=== PATIENT | female | born 1940 | race Caucasian/White ===

== ENCOUNTER → 2019-02-07 11:51 | Outpatient (CLI) | payer MEDICARE, MEDICAID, SELFPAY | PROVIDERS: PCP Family Medicine; Visit Provider Specialist | DX: R51 Headache (principal); R55 Syncope and collapse; G47.30 Sleep apnea, unspecified | CPT/HCPCS: 93005; 93225; 93226; 94762 ==

== ENCOUNTER → 2019-02-28 13:36 | Outpatient (CLI) | payer MEDICARE, BC, SELFPAY ==
--- NOTE | 2019-02-28 13:39 | CI_ITS ---
Cerebrovascular Exam Indications: Follow-up carotid 433.10. 780.2 Syncope and collapse. IMPRESSIONS 1. The bilateral vertebral arteries are patent with normal antegrade flow. 2. Stent visualized in right ICA. The stented segment is patent. 3. Study suggests less than 20% stenosis involving the right internal carotid artery. No change from the study of 28-Feb-2011. 4. Study suggests less than 20% stenosis involving the left internal carotid artery. No change from the study of 28-Feb-2011. History: Risk factors: Hypertension. Labs, prior tests, procedures, and surgery: Left endarterectomy. December 2009 Right carotid stent. March 2010 Labs, prior tests, procedures, and surgery: Left endarterectomy. December 2009 Right carotid stent. March 2010 Carotid duplex study. Complete study and Doppler flow study including spectral analysis, color and hernandez scale imaging. Height: Height: 170.2cm. Height: 67in. Weight: Weight: 79.4kg. Weight: 174.6lb. Body mass index: BMI: 27.4kg/m^2. Body surface area: BSA: 1.95m^2. Location: Vascular laboratory. Patient status: Outpatient. Tables: Arterial flow: + +--------+--------+ Location V sys V ed + +--------+--------+ Right CCA - proximal 49.5cm/s 12.6cm/s + +--------+--------+ Right CCA - distal 58.1cm/s 12.1cm/s + +--------+--------+ Right ECA 181cm/s 26cm/s + +--------+--------+ Right ICA - proximal 127cm/s 24.9cm/s + +--------+--------+ Right ICA - mid 118cm/s 20cm/s + +--------+--------+ Right ICA - distal 101cm/s 14.4cm/s + +--------+--------+ Right vertebral 37.7cm/s 11.9cm/s + +--------+--------+ Left CCA - proximal 93.5cm/s 17.8cm/s + +--------+--------+ Left CCA - distal 115cm/s 19.6cm/s + +--------+--------+ Left ECA 115cm/s 9.5cm/s + +--------+--------+ Left ICA - proximal 112cm/s 26.7cm/s + +--------+--------+ Left ICA - mid 114cm/s 26.7cm/s + +--------+--------+ Left ICA - distal 108cm/s 21.4cm/s + +--------+--------+ Left vertebral 74.2cm/s 15.6cm/s + +--------+--------+ Velocity ratios: + + + + + + Right, V sys Right, V ed Left, V sys Left, V ed + + + + + + Max ICA/dist CCA 2.19 2.06 0.99 1.36 + + + + + + (Report amended ) Electronically signed by: Sergey Cooper [id number]
--- NOTE | 2019-02-28 14:34 | MR_ITS ---
MR head/brain wo con HISTORY: Severe headache in back of head extending down into the neck, hypersomnolent ITS.REASON: headache, presyncope ORDERING PHYSICIAN: Keisha Shipman MD PATIENT AGE: 79 years Comparison: 11/03/2018 TECHNIQUE: Standard multiplanar multiecho sequences are performed without contrast. FINDINGS: No evidence of acute infarction. There is mild generalized atrophy with scattered periventricular and subcortical T2 white matter hyperintensities consistent with ischemic gliotic change from microvascular disease. Small cystic areas present in the body of the right caudate nucleus at 5 mm and could represent sequela from an old lacunar infarction. The cerebellum, and brainstem are unremarkable. No midline shift, mass effect, intracranial hemorrhage, or hydrocephalus. The pituitary, optic chiasm, corpus callosum, and craniocervical junction have an unremarkable appearance. Upper cervical images suggest canal stenosis at C3-C4 C4-C5 and C5-C6. This is however incompletely imaged. There is a small focus of increased FLAIR signal in the anterior aspect of the right CP angle. This area measures approximately 5 mm and is seen only on the axial images is not redemonstrated on the coronal images and may be due to an artifact. No sinus air-fluid level. Small amount fluid is present in the right mastoid sinus. IMPRESSION: 1. No acute finding. 2. Atrophy with chronic ischemic gliotic change. 3. Small 5 mm area of increased FLAIR signal in the right CP angle. This is of questionable clinical significance and may be due to an artifact. Follow-up study of the CP angles with thin sections without and with contrast may confirm if clinically desired. 4. Small amount of fluid in the right mastoid sinus
--- NOTE | 2019-02-28 14:34 | MR_ITS ---
MR cervical spine wo con, MR 3-d myelogram/MRCP HISTORY: PT states headaches in back of head that extend into neck. ITS.REASON: neck pain ORDERING PHYSICIAN: Keisha Shipman MD PATIENT AGE: 79 years Comparison: CT 11/03/18. TECHNIQUE: Standard multiplanar multiecho sequences are performed without contrast. 3-D MIP and myelographic images are also rendered and reviewed FINDINGS: There is motion degradation artifact. There is normal alignment. The craniocervical junction has an unremarkable appearance. C2-C3: Unremarkable. C3-C4: Mild concentric bulging disc with narrowing of the canal at 9 mm without cord flattening. Type I endplate changes are present at this level posteriorly. C4-C5: Degenerative disc disease with bulging disc and small central disc protrusion with narrowing of the canal at 9 mm with minimal contour deformity along the anterior aspect of the cord and mild bilateral foraminal narrowing. C5-C6: Degenerative disc disease with endplate hypertrophic changes and bulging disc which is eccentric toward the right with bilateral uncovertebral disc osteophyte complexes along with bilateral foraminal narrowing. Canal narrowing at 10 mm is noted. There is some mild impingement upon the anterior aspect of the cord on the right. C6-C7: Degenerative disc disease with mild bulging disc. There is a well-circumscribed oval area of isointense T1 and decreased T2 signal along the posterior aspect of the cord at this level. This measures 7 mm cephalad to caudad and 10 mm transverse and 7 mm AP representing an area of epidural calcification which was present on the previous CT scan. This is causing some canal narrowing with some mild impingement upon the posterior left aspect of the cord. C7-T1: Unremarkable IMPRESSION: 1. Multilevel degenerative disc disease with borderline canal stenosis. Please see above for detailed description at each level. 2. C3-C4: Mild concentric bulging disc with narrowing of the canal at 9 mm without cord flattening. Type I endplate changes are present at this level posteriorly 3. C4-C5: Degenerative disc disease with bulging disc and small central disc protrusion with narrowing of the canal at 9 mm with minimal contour deformity along the anterior aspect of the cord and mild bilateral foraminal narrowing. 4. C5-C6: Degenerative disc disease with endplate hypertrophic changes and bulging disc which is eccentric toward the right with bilateral uncovertebral disc osteophyte complexes along with bilateral foraminal narrowing. Canal narrowing at 10 mm is noted. There is some mild impingement upon the anterior aspect of the cord on the right. 5. C6-C7: Degenerative disc disease with mild bulging disc. There is a well-circumscribed oval area of isointense T1 and decreased T2 signal along the posterior aspect of the cord at this level. This measures 7 mm cephalad to caudad and 10 mm transverse and 7 mm AP representing an area of epidural calcification which was present on the previous CT scan. This is causing some canal narrowing with some mild impingement upon the posterior left aspect of the cord
== END ==
PROVIDERS: PCP Family Medicine; Visit Provider Specialist
DX: R51 Headache (principal); R55 Syncope and collapse; M47.812 Spondylosis without myelopathy or radiculopathy, cervical region; M54.2 Cervicalgia
CPT/HCPCS: 70551; 72141; 76376; 93880

== ENCOUNTER → 2019-03-17 20:18 | Outpatient (CLI) | payer MEDICARE, BC, SELFPAY | PROVIDERS: PCP Family Medicine; Visit Provider Specialist | DX: G47.33 Obstructive sleep apnea (adult) (pediatric) (principal) | CPT/HCPCS: 95810 ==

== ENCOUNTER → 2019-11-09 10:55 | Outpatient (CLI) | payer MEDICARE, BC, SELFPAY ==
--- NOTE | 2019-11-09 10:59 | CA_ITS ---
APPROVED REPORT Left Lower Extremity Venous Study for DVT. [employer] Labourer: EV DangeloT Indications Lower Extremity Pain: Pain back of left knee Vein Imaging CFV (L): compressive, spontaneous, phasic, augmentation FEM (L): compressive, spontaneous, phasic, augmentation POP (L): compressive, spontaneous, phasic, augmentation PTV (L): Compressible GSV (L): Compressible Peroneals (L):Compressible GAS (L): Compressible Findings Study suggests no evidence of DVT in the left lower extremity. Study suggests no evidence of SVT in the left lower extremity. Conclusion Study suggests no evidence of DVT in the left lower extremity. Study suggests no evidence of SVT in the left lower extremity. Critical Notification Physician Notified Date: 11/09/2019 Time: 11:25 am Physician Name: [facility] Electronically signed by : Jorge L Tomlinson, 11/09/2019 19:08:29
== END ==
PROVIDERS: PCP Emergency Medicine; Visit Provider Emergency Medicine
DX: M79.605 Pain in left leg (principal)
CPT/HCPCS: 93971

== ENCOUNTER 2020-04-25 19:52 | Observation (INO) | payer MEDICARE, BC, SELFPAY ==
--- NOTE | 2020-04-25 19:49 | ECG_ITS ---
APPROVED REPORT Exam: Resting ECG HR:77 bpm ECG Measurements Heart Rate 77 AXES DC P 78 QRSd 84 QRS 43 QT 350 T 5 QTc 396 <Conclusion> Sinus rhythm with AV dissociation and Accelerated Junctional rhythm Abnormal ECG Electronically signed by : Yogesh Curran, 04/28/2020 08:30:56
[2020-04-25 19:53] VITALS: BP 180/78; PULSE 88; RESP 20; TEMP 36.6; O2SAT 97; BMI 26.6
--- NOTE | 2020-04-25 19:54 | XR_ITS ---
PROCEDURE: XR CHEST PORTABLE CLINICAL HISTORY: cough COMPARISON: CR CXR1 CHEST-PORTABLE from 06/07/2014 FINDINGS: The cardiomediastinal silhouette and pulmonary vascularity are within normal limits. The lungs are clear without infiltrates, suspicious nodules, or pleural effusions. Degenerative changes the shoulders IMPRESSION: No acute findings. Dictated b Sergey Cooper MD 04/26/2020 07:50 Sergey Cooper MD in [facility] 04/26/2020 07:50
[2020-04-25 20:07] LABS: Basophils % 0.4 % (0.1-2.0); Eosinophils # 0.3 K/mm3 (0.0-0.4); Eosinophils % 3.1 % (0.1-12.0); Hematocrit 36.7 % (37.0-47.0); Hemoglobin 12.2 g/dL (12.2-16.2); Lymphocytes # 2.1 K/mm3 (0.7-4.5); Lymphocytes % 22.2 % (10-50); Mean Corpuscular HGB Conc 33.2 g/dL (31.8-35.4); Mean Corpuscular Hemoglobin 30.4 pg (27.0-31.2); Mean Corpuscular Volume 91.6 fl (81-99); Mean Platelet Volume 7.1 fl (7.4-10.4); Monocytes # 0.3 K/mm3 (0.1-1.0); Monocytes % 2.7 % (1.7-9.3); Neutrophils # 6.9 K/mm3 (1.8-7.8); Neutrophils % 71.6 % (37.0-80.0); Platelet Count 320 K/mm3 (142-424); Red Blood Count 4.01 M/mm3 (4.20-5.40); Red Cell Distribution Width 13.6 % (11.5-17.5); White Blood Count 9.6 K/mm3 (4.8-10.8)
[2020-04-25 20:17] LABS: Chloride 103 mmol/L (98-107); Potassium 4.1 mmoL/L (3.5-5.1); Sodium 140 mmol/L (136-145)
[2020-04-25 20:19] LABS: Alanine Aminotransferase 18 U/L (12-78); Aspartate Amino Transferase 36 U/L (14-36); Blood Urea Nitrogen 17 mg/dl (7-17); Creatinine Clearance Estimated 50 mL/min (50-200); Estimated Glomerular Filt Rate 48 ml/min (>60); GFR (African American) 58 ML/MIN (>60)
[2020-04-25 20:20] LABS: Activated Partial Thrombo Time 23.2 seconds (23.6-34.0); Albumin Level 3.9 g/dl (3.5-5.0); Albumin/Globulin Ratio 1.3 (1.1-1.8); Alkaline Phosphatase 70 U/L (38-126); Anion Gap 11.1 mEq/L (5-15); Bilirubin,Total 0.6 mg/dl (0.2-1.3); Carbon Dioxide 30 mmol/L (22.0-30.0); Globulin 3.1 g/dL (1.3-3.2); Glucose 137 mg/dl (74-100); INR 1.01 (0.9-1.1); Lipase 105 U/L (23-300); Prothrombin Time 10.4 seconds (9.4-11.8)
[2020-04-25 20:52] VITALS: BP 132/91; PULSE 69; RESP 18; O2SAT 94
[2020-04-25 21:31] VITALS: BP 166/64; PULSE 72; RESP 18; O2SAT 96
[2020-04-25 21:43] LABS: NT Pro Brain Natriuretic Pep. 350 pg/mL (0-450)
[2020-04-25 21:44] LABS: Troponin I < 0.01 ng/ml (0.00-0.034)
--- NOTE | 2020-04-25 21:54 | HMH.EDGENADL ---
ED Disposition Clinical Impression: Chest pain Disposition: Admitted as Observation Condition on Discharge: Good - Critical Care Critical Care Time: No Attestation: On 04/25/20, the high probability of a clinically significant, sudden or life threatening deterioration of the following system(s) required my full and direct attention, intervention and personal management. The time I documented below is in addition to time spent performing reported procedures but includes the following listed in this critical care notation. Medical Decision Making - Medical Records Medical records reviewed: Yes: I reviewed the patient's medical records. - Antwan Inquiry Pt receiving controlled substance: No Vital Signs: 04/25/20 19:53 04/25/20 20:52 04/25/20 21:31 Temperature 97.9 F Temperature Source Oral Pulse Rate [Right] 88 69 72 Respiratory Rate 20 18 18 Blood Pressure [Right Arm] 180/78 H 132/91 H 166/64 H Blood Pressure Mean [Right Arm] 112 104 98 Blood Pressure Source [Right Arm] Automatic Cuff Blood Pressure Position [Right Arm] Supine 02 Sat by Pulse Oximetry 97 94 L 96 Oxygen Delivery Method Room Air Room Air Room Air 04/25/20 22:20 Temperature Temperature Source Pulse Rate [Right] 72 Respiratory Rate 18 Blood Pressure [Right Arm] 156/99 H Blood Pressure Mean [Right Arm] 118 Blood Pressure Source [Right Arm] Blood Pressure Position [Right Arm] 02 Sat by Pulse Oximetry 94 L Oxygen Delivery Method Room Air - Lab Data Lab results reviewed: Yes: I reviewed the patient's lab results. Lab Results 04/25/20 19:55: WBC 9.6, RBC 4.01 L, Hgb 12.2, Hct 36.7 L, MCV 91.6, MCH 30.4, MCHC 33.2, RDW 13.6, Plt Count 320, MPV 7.1 L, Neut % (Auto) 71.6, Lymph % (Auto) 22.2, [place] % (Auto) 2.7, Eos % (Auto) 3.1, Baso % (Auto) 0.4, Neut # (Auto) 6.9, Lymph # (Auto) 2.1, [place] # (Auto) 0.3, Eos # (Auto) 0.3, Baso # (Auto) 0.0 04/25/20 19:55: PT 10.4, INR 1.01, APTT 23.2 L 04/25/20 19:55: Sodium 140, Potassium 4.1, Chloride 103, Carbon Dioxide 30, Anion Gap 11.1, BUN 17, Creatinine 1.10 H, Estimated Creat Clear 50, Estimated GFR 48 L, Est GFR ( Amer) 58 L, Glucose 137 H, Calcium 10.0, Total Bilirubin 0.6, AST 36, ALT 18, Alkaline Phosphatase 70, Troponin I < 0.01, NT-Pro-B Natriuret Pep 350, Total Protein 7.0, Albumin 3.9, Globulin 3.1, Albumin/Globulin Ratio 1.3, Lipase 105 Result diagrams: 04/25/20 19:55 04/25/20 19:55 Orders (Tests/Meds): ED MEDICATIONS Discontinued Medications Generic Name Dose Route Start Last Admin Trade Name Freq PRN Reason Stop Dose Admin Aspirin 324 mg 04/25/20 20:24 04/25/20 20:25 Aspirin 81mg Chewable Tablet PO 04/25/20 20:25 324 mg ONCE ONE Administration Nitroglycerin 0.4 mg 04/25/20 20:24 04/25/20 20:25 Nitrostat 0.4mg Sl Tablet SL 04/25/20 20:25 1 tab ONCE ONE Administration ORDERS Category Date Time Status XR chest portable Stat Exams 04/25/20 19:54 Taken Full Resp Panel (COVID)(INPT) Routine Lab 04/25/20 22:37 Received Troponin I Q3H Lab 04/25/20 22:47 Received Troponin I Q3H Lab 04/26/20 02:00 Ordered EKG Request [ECG Request by /Jeanmarie] Stat Y 04/25/20 19:54 Ordered - Radiology Data #1 Image(s): Chest Preliminary Findings: Normal/NAD - ECG Data Tracing #1 I reviewed this ECG and interpreted as documented below: Normal Sinus Rhythm: Yes General Adult HPI - General Chief complaint: Chest Pain Stated complaint: Chest Pain Time Seen by Provider: 04/25/20 21:00 Mode of Arrival: Wheelchair Source of Information: Patient Limitations: No Limitations Description of Symptoms (Recalled from ER Triage Doc. 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 She states that the pain started about 45 minutes
[2020-04-25 22:20] VITALS: BP 156/99; PULSE 72; RESP 18; O2SAT 94
--- NOTE | 2020-04-25 22:30 | PC.NURSE ---
Pt admitted, waiting for COVID 19 results before pt can be transferred to the floor
[2020-04-25 22:41] LABS: Adenovirus,PCR Not Detected (NotDetected); Bordetella Pertussis Not Detected (NotDetected); Chlamydophila Pneumoniae, PCR Not Detected (NotDetected); Coronavirus 19, PCR Not Detected (NotDetected); Coronavirus 229E Not Detected (NotDetected); Coronavirus NL63 Not Detected (NotDetected); Coronavirus OC43 Not Detected (NotDetected); Coronovirus HKU1,PCR Not Detected (NotDetected); Human Metapneumovirus Not Detected (NotDetected); Influenza A, PCR Not Detected (NotDetected); Influenza AH1, 2009 Not Detected (NotDetected); Influenza AH1, PCR Not Detected (NotDetected); Influenza AH3,PCR Not Detected (NotDetected); Influenza B, PCR Not Detected (NotDetected); Mycoplasma Pneumoniae, PCR Not Detected (NotDetected); Parainfluenza 1, PCR Not Detected (NotDetected); Parainfluenza 2, PCR Not Detected (NotDetected); Parainfluenza 3, PCR Not Detected (NotDetected); Parainfluenza 4, PCR Not Detected (NotDetected); Respiratory Syncytial Virus Not Detected (NotDetected); Rhinovirus/Enterovirus Not Detected (NotDetected)
[2020-04-25 22:43] VITALS: O2SAT 95; BMI 28.0
--- NOTE | 2020-04-25 22:43 | PC.NURSE ---
awaiting covid results for admission
[2020-04-25 23:16] LABS: Troponin I < 0.01 ng/ml (0.00-0.034)
[2020-04-25 23:54] VITALS: BP 171/59; PULSE 74; RESP 18; O2SAT 94
[2020-04-26] VITALS (18 sets, daily range): BP systolic 104–155; BP diastolic 43–75; PULSE 55–70; RESP 16–18; TEMP 36.6–37.1; O2SAT 93–99
--- NOTE | 2020-04-26 | IR_ITS ---
APPROVED REPORT Patient Location: Inpatient PROCEDURES Left heart catheterization Left ventriculogram Selective coronary angiogram INDICATION Known coronary disease, Unstable angina, Informed consent was obtained prior to the procedure. COMPLICATIONS NONE Estimated Blood Loss: LESS THAN 10 ML TECHNIQUE One percent lidocaine used to anesthetize the right anterior aspect of the wrist. The right radial artery was accessed via the Seldinger technique. A 6 Chinese sheath was placed in the right radial artery. 2.5 mg of verapamil, 800 mcg of nitroglycerin, 1mg Lidocaine and 5000 U Heparin were given through the arterial sheath. The Parrish catheter was also used to perform left heart catheterization, left ventriculogram and selective coronary angiogram. At the end of the procedure the sheath was removed good hemostasis was achieved using Traclet band, patient was transferred to the postop holding area in stable condition. ANGIOGRAPHIC RESULTS The left main artery Normal The left anterior descending artery Has mild proximal atheromatous plaque creating 20 to 30% stenoses. The vessel is calcified tortuous throughout its course. There is a stent in the mid segment which is widely patent free of in-stent restenosis. Likewise in the first diagonal artery there is a stent in the proximal segment which is also widely patent free of in-stent restenosis. The circumflex artery Nondominant calcified with mild 10 to 20% atheromatous plaque The right coronary artery Is a large dominant vessel with diffuse proximal 20% stenoses mid vessel 30 to 40% stenosis along tortuous bands. The entire vessel was tortuous The BELL ventriculogram reveals Hyperdynamic at 75% The left ventricular end-diastolic pressure 20 mmHg IMPRESSION Tortuous calcified coronary artery disease as described above Patent stent in the mid LAD and first diagonal artery Hyperdynamic ventricle consistent with diastolic dysfunction/hypertensive heart disease Elevated LVEDP also consistent with diastolic dysfunction PLAN 1. Medical management Electronically signed by : Liborio Burns, 04/26/2020 14:38:31
--- NOTE | 2020-04-26 02:04 | ECG_ITS ---
APPROVED REPORT Exam: Resting ECG HR:69 bpm ECG Measurements Heart Rate 69 AXES W[place] 178 P 58 QRSd 88 QRS 38 QT 372 T 44 QTc 398 <Conclusion> Normal sinus rhythm Early repolarization Normal ECG Electronically signed by : Yogesh Curran, 04/28/2020 08:30:46
--- NOTE | 2020-04-26 02:05 | PC.NURSE ---
pt called out and stated she was having chest pain again. repeat EKG obtained and an inch of nitro paste applied. pt reports a decrease in chest pain after nitro was applied from a 5 to a 4
--- NOTE | 2020-04-26 02:07 | PC.NURSE ---
report called to GENO Duarte
[2020-04-26 02:52] LABS: Troponin I < 0.01 ng/ml (0.00-0.034)
--- NOTE | 2020-04-26 04:24 | PC.NURSE ---
0400 NSR with occasional PAC
--- NOTE | 2020-04-26 05:17 | PC.NURSE ---
0500 Normal Sinus Rhythm
--- NOTE | 2020-04-26 05:58 | PC.NURSE ---
0600 Sinus rhythm HR 70 0500 HR 64 04 HR 74
--- NOTE | 2020-04-26 06:46 | PC.NURSE ---
0645 Sinus Rhythm HR 68. Denies chest pain/shortness of air.
[2020-04-26 07:06] LABS: Basophils % 0.3 % (0.1-2.0); Eosinophils # 0.1 K/mm3 (0.0-0.4)
[2020-04-26 07:17] LABS: Alanine Aminotransferase 15 U/L (12-78); Albumin Level 3.5 g/dl (3.5-5.0); Albumin/Globulin Ratio 1.2 (1.1-1.8); Alkaline Phosphatase 80 U/L (38-126); Aspartate Amino Transferase 38 U/L (14-36); Bilirubin,Total 0.5 mg/dl (0.2-1.3); Blood Urea Nitrogen 16 mg/dl (7-17); Calcium 9.6 mg/dl (8.4-10.2); Carbon Dioxide 31 mmol/L (22.0-30.0); Chloride 99 mmol/L (98-107); Creatinine Clearance Estimated 58 mL/min (50-200); Estimated Glomerular Filt Rate 60 ml/min (>60); GFR (African American) 73 ML/MIN (>60); Globulin 2.9 g/dL (1.3-3.2); Glucose 149 mg/dl (74-100); Sodium 136 mmol/L (136-145); Total Protein,Serum 6.4 g/dl (6.3-8.2)
[2020-04-26 07:18] LABS: Hematocrit 32.7 % (37.0-47.0); Lymphocytes # 1.3 K/mm3 (0.7-4.5); Lymphocytes % 13.8 % (10-50); Mean Corpuscular HGB Conc 33.9 g/dL (31.8-35.4); Mean Corpuscular Hemoglobin 30.8 pg (27.0-31.2); Mean Platelet Volume 7.1 fl (7.4-10.4); Monocytes # 0.3 K/mm3 (0.1-1.0); Monocytes % 3.6 % (1.7-9.3); Neutrophils # 7.6 K/mm3 (1.8-7.8); Neutrophils % 81.4 % (37.0-80.0); Platelet Count 255 K/mm3 (142-424); Red Cell Distribution Width 13.4 % (11.5-17.5); White Blood Count 9.3 K/mm3 (4.8-10.8)
[2020-04-26 07:19] LABS: Hemoglobin 11.1 g/dL (12.2-16.2)
--- NOTE | 2020-04-26 07:27 | HMH.PHAVTE ---
[facility] Pharmacy VTE Monitoring - Patient Demographics Admission date: 04/26/20 Report Date: 04/26/20 Time: 07:27 Allergies/Adverse Reactions: Patient Allergies No Known Allergies Allergy (Verified 11/16/19 12:51) Height: 1.7 m Weight: 81.193 kg Patient Problems: Current Active Problems Chest pain (Acute) - VTE Risk Labs: VTE Related Lab Results Hgb 11.1 g/dL (12.2-16.2) L 04/26/20 06:51 Hct 32.7 % (37.0-47.0) L 04/26/20 06:51 Plt Count 255 K/mm3 (142-424) 04/26/20 06:51 PT 10.4 seconds (9.4-11.8) 04/25/20 19:55 INR 1.01 (0.9-1.1) 04/25/20 19:55 APTT 23.2 seconds (23.6-34.0) L 04/25/20 19:55 BUN 16 mg/dl (7-17) 04/26/20 06:51 Creatinine 0.90 mg/dl (0.52-1.04) 04/26/20 06:51 Estimated Creat Clear 58 mL/min (50-200) 04/26/20 06:51 Was VTE Risk Assessment Performed: Yes VTE Score: 3 VTE Risk Level: Low Risk Clinical Trial Participant: No - Prophylaxis VTE Prophylaxis Ordered?: Yes Types of VTE Prophylaxis: TEDS Knee High
--- NOTE | 2020-04-26 07:30 | HMH.PHAINT ---
HOME MEDICATION RECONCILIATION COMPLETED USING LIST FROM PHARMACY
--- NOTE | 2020-04-26 07:38 | HMH.CNCARD ---
History of Present Illness Consult date: 04/26/20 Requesting physician: Alok Murphy Consult reason: chest pain Chief complaint: chest pain Additional Medical History:: 1. Coronary artery disease A. History of coronary artery stenting x3, approximately 2013, Dr. Acuna, [place], [place] 2. Hypertension 3. Hyperlipidemia 4. Diabetes mellitus, treated for at least 10 years 5. Remote history of tobacco use discontinued in 1993, present previously smoked 3 to 4 packs/day Perez in her early teens. 6. Concern for dementia with history of MRI of the head showing cortical atrophy 7. Recent COVID exposure, 04/2020 History of present illness: 80-year-old white female admitted through the emergency department for complaint of chest pain with radiation to the neck. Patient lives alone and states that symptoms began yesterday as a heaviness but also described as a sharpness per the ER MD. Patient did try and acid and soda to see if the symptoms were related to indigestion with no relief. She did take a nitroglycerin at home but feels that it was and did not get any relief with it. She did drive herself to the ER with pain noted as a 12 out of 10 by the time she got to the ER. She was given nitroglycerin sublingual with subsequent improvement/resolution of symptoms. Patient was admitted and had nitroglycerin paste placed overnight. She continues to have some intermittent chest discomfort described as heaviness with radiation to the neck as a 5 out of 10 at times. Troponins have returned normal x3 overnight. EKG shows sinus rhythm without acute EKG changes on initial EKG. Second EKG obtained during the night shows what appears to be early repolarization abnormalities. [facility] History Medical History: Reports:: Coronary Artery Disease, Diabetes Mellitus Type 2, Hyperlipidemia, Hypertension Denies:: Cancer, Diabetes Mellitus Type 1, Internal Pacemaker, MRSA *Have you ever received a pneumonia vaccine?: Yes *Have you received a flu vaccine this season?: Yes Other Medical History: Reports: Arthritis, Cataracts, Other Laterality Cases: Left: Carotid Endarterectomy, Bilateral: Cataract, Tonsillectomy, Total Hip Replacement Other Surgeries: Yes: Appendectomy, Cardiac Catheterization, Coronary Stent, Hysterectomy-Total. No: Pacemaker Amputation: No Fractures: No - *Social History Smoking Status: Former smoker Tobacco Type: cigarettes #Yrs smoked (if former smoker): 30 Alcohol Intake: former Alcohol Intake Frequency:: other Substance Use Type: denies use *Occupational Status:: retired Housing: house Household Members: none *Travel in the last 8 weeks: None Family Hx:: Cancer, Diabetes Meds Home Medications Medication Instructions Recorded Confirmed Type Amlodipine Besylate 5 mg PO DAILY 09/04/18 04/26/20 History Atorvastatin Calcium [Atorvastatin 80 mg PO HS 09/04/18 04/26/20 History 80mg Tab] Bisoprolol Fumarate [Bisoprolol 2.5 mg PO DAILY 09/04/18 04/26/20 History 5mg Tablet] Gabapentin [Gabapentin 300mg Cap] 600 mg PO BID 09/04/18 04/26/20 History Aspirin [Aspirin 81mg chewable 81 mg PO DAILY 11/03/18 04/26/20 History tab] Amitriptyline HCl [Elavil 10mg 10 mg PO HS 04/26/20 04/26/20 History tablet] Allergies Allergy/AdvReac Type Severity Reaction Status Date / Time No Known Allergies Allergy Verified 11/16/19 12:51 Review of Systems - Review of Systems Review of systems:: pertinent systems reviewed and negative unless documented below - *Cardiovascular Reports chest pain, Reports chest pain at rest - *Respiratory Denies cough, Denies shortness of breath - *Gastrointestinal Denies loose stools, Denies nausea, Denies vomiting - *Genitourinary Denies blood in urine - *Musculoskeletal Denies joint pain, Denies back pain - *Neurologic Denies fainting, Denies tingling Exam Vital signs and Labs for Last 24 Hours: Temp Pulse Resp BP Pulse Ox 98.8 F 68 16 15
--- NOTE | 2020-04-26 07:49 | ECG_ITS ---
APPROVED REPORT Exam: Resting ECG HR:73 bpm ECG Measurements Heart Rate 73 AXES [place] 176 P 38 QRSd 90 QRS 12 QT 374 T 33 QTc 412 <Conclusion> Normal sinus rhythm Nonspecific ST abnormality Abnormal ECG Electronically signed by : Yogesh Curran, 04/28/2020 08:30:08
--- NOTE | 2020-04-26 08:29 | HMH.HP ---
*Admission Date: 04/26/20 <Anisa Yanez 04/26/20 08:33> *Chief complaint: chest pain <Anisa Yanez 04/26/20 08:33> *History of present illness: Ms. Levine is a 80-year-old white female admitted through the emergency department for complaint of chest pain with radiation to the neck. Patient lives alone and states that symptoms began yesterday as a heaviness but also described as a sharpness per the ER MD. Patient did try antacid and soda to see if the symptoms were related to indigestion with no relief. She did take a nitroglycerin at home but feels that it was and did not get any relief with it. She did drive herself to the ER with pain noted as a 12 out of 10 by the time she got to the ER. She was given nitroglycerin sublingual with subsequent improvement/resolution of symptoms. Patient was admitted and had nitroglycerin paste placed overnight. She continues to have some intermittent chest discomfort described as heaviness with radiation to the neck as a 5 out of 10 at times. Troponins have returned normal x3 overnight. EKG shows sinus rhythm without acute EKG changes on initial EKG. Second EKG obtained during the night shows what appears to be early repolarization abnormalities. (the above as per Jimmy Marquez) <Anisa Yanez 04/26/20 08:33> [facility] History I have reviewed the patient's past medical history: Yes <Anisa Yanez 04/26/20 08:33> Medical History: Reports:: Coronary Artery Disease, Diabetes Mellitus Type 2, Hyperlipidemia, Hypertension Denies:: Cancer, Diabetes Mellitus Type 1, Internal Pacemaker, MRSA <Anisa Yanez 04/26/20 08:33> *Have you ever received a pneumonia vaccine?: Yes <Anisa Yanez 04/26/20 08:33> *Have you received a flu vaccine this season?: Yes <Anisa Yanez 04/26/20 08:33> Other Medical History: Reports: Arthritis, Cataracts, Other <Anisa Yanez 04/26/20 08:33> Laterality Cases: Left: Carotid Endarterectomy, Bilateral: Cataract, Tonsillectomy, Total Hip Replacement <Anisa Yanez 04/26/20 08:33> Other Surgeries: Yes: Appendectomy, Cardiac Catheterization, Coronary Stent, Hysterectomy-Total. No: Pacemaker <Anisa Yanez 04/26/20 08:33> Amputation: No <RenataAnisa 04/26/20 08:33> Fractures: No <RenataAnisa 04/26/20 08:33> - *Social History Smoking Status: Former smoker <Anisa Yanez 04/26/20 08:33> Tobacco Type: cigarettes <Anisa Yanez 04/26/20 08:33> #Yrs smoked (if former smoker): 30 <Anisa Yanez 04/26/20 08:33> Alcohol Intake: former <Anisa Yanez 04/26/20 08:33> Alcohol Intake Frequency:: other <RenataAnisa 04/26/20 08:33> Substance Use Type: denies use <Anisa Yanez 04/26/20 08:33> *Occupational Status:: retired <Anisa Yanez 04/26/20 08:33> Housing: house <Derik Yaneza 04/26/20 08:33> Household Members: none <Anisa Yanez 04/26/20 08:33> *Travel in the last 8 weeks: None <Anisa Yanez 04/26/20 08:33> Family Hx:: Cancer, Diabetes <Derik Yaneza 04/26/20 08:33> Review of Systems - Constitutional Denies chills, Denies fever(s) <Anisa Yanez 04/26/20 08:33> - Eyes Denies blurry vision, Denies double vision <RenataAnisa 04/26/20 08:33> - ENT Denies nasal congestion, Denies sore throat <Derik Yaneza 04/26/20 08:33> - *Cardiovascular Reports chest pain, Reports shortness of breath (some pain with inspiration) <Anisa Yanez 04/26/20 08:33> - *Respiratory Denies cough, Denies wheezing <Anisa Yanez 04/26/20 08:33> - *Gastrointestinal Denies abdominal pain, Denies loose stools, Denies nausea, Denies vomiting <Anisa Yanez - 04/26/20 08:33> - *Genitourinary Denies difficulty urinating, Denies painful urination <Anisa Yanez 04/26/20 08:33> - *Musculoskeletal Denies joint pain <Anisa Yanez 04/26/20 08:33> - *Neurologic Denies headache(s), Denies fainting, Denies tingling, Denies dizziness, Denies weakness <Anisa Yanez 04/26/20 08:33> Meds Elizabeth
--- NOTE | 2020-04-26 10:03 | CA_ITS ---
APPROVED REPORT Waiter/Waitress Third Class: MIGUEL Laterality: Bilateral Study Quality: Good Indications: left carotid bruit H/O STENT RIGHT ICA AND LEFT ENDARTERECTOMY Doppler Spectral Velocity Analysis dICA (R) 160.30/35.90 cm/s dICA (L) 127.10/33.30 cm/s Jaz (R) 182.40/27.40 cm/s Jaz (L) 134.20/26.20 cm/s pICA (R) 196.10/47.90 cm/s pICA (L) 208.60/37.20 cm/s dCCA (R) 95.10/20.00 cm/s dCCA (L) 204.50/26.90 cm/s pCCA (R) 74.70/20.10 cm/s pCCA (L) 169.10/19.80 cm/s Vert (R) 99.50/16.60 cm/s Vert (L) 79.40/13.70 cm/s ICA/CCA 2.10 ICA/CCA 1.00 Findings Duplex evaluation demonstrates stenosis of the right proximal internal carotid artery in the range of 50-69% with PSV =140 cm/sec, EDV <100 cm/sec, and IC/CC Ratio <4.0.Duplex evaluation demonstrates stenosis of the left proximal internal carotid artery in the range of 20-49% with PSV <140 cm/sec, EDV <100 cm/sec, and IC/CC Ratio <4.0.Antegrade flow seen bilateral vertebral arteries. Changes noted from previous exam of 02/28/19 Conclusion Duplex evaluation demonstrates stenosis of the right proximal internal carotid artery in the range of 50-69% with PSV =140 cm/sec, EDV <100 cm/sec, and IC/CC Ratio <4.0. Duplex evaluation demonstrates stenosis of the left proximal internal carotid artery in the range of 20-49% with PSV <140 cm/sec, EDV <100 cm/sec, and IC/CC Ratio <4.0. Antegrade flow seen bilateral vertebral arteries. Electronically signed by : Sergey Cooper MD 04/26/2020 17:16:07
--- NOTE | 2020-04-26 17:27 | HMH.ACPN2 ---
Internal Medicine - PN: Subj *Date: 04/26/20 *Time: 17:27 Interval history: Patient had left heart cath today and is anxious to go home. Tolerating regular diet. Exam Vital signs and Labs for Last 24 Hours: Temp Pulse Resp BP Pulse Ox 98.1 F 61 16 136/57 L 94 L 04/26/20 11:27 04/26/20 14:45 04/26/20 14:45 04/26/20 14:45 04/26/20 14:45 Laboratory Results - last 24 hr 04/25/20 19:55: WBC 9.6, RBC 4.01 L, Hgb 12.2, Hct 36.7 L, MCV 91.6, MCH 30.4, MCHC 33.2, RDW 13.6, Plt Count 320, MPV 7.1 L, Neut % (Auto) 71.6, Lymph % (Auto) 22.2, [place] % (Auto) 2.7, Eos % (Auto) 3.1, Baso % (Auto) 0.4, Neut # (Auto) 6.9, Lymph # (Auto) 2.1, [place] # (Auto) 0.3, Eos # (Auto) 0.3, Baso # (Auto) 0.0 04/25/20 19:55: PT 10.4, INR 1.01, APTT 23.2 L 04/25/20 19:55: Sodium 140, Potassium 4.1, Chloride 103, Carbon Dioxide 30, Anion Gap 11.1, BUN 17, Creatinine 1.10 H, Estimated Creat Clear 50, Estimated GFR 48 L, Est GFR ( Amer) 58 L, Glucose 137 H, Calcium 10.0, Total Bilirubin 0.6, AST 36, ALT 18, Alkaline Phosphatase 70, Troponin I < 0.01, NT-Pro-B Natriuret Pep 350, Total Protein 7.0, Albumin 3.9, Globulin 3.1, Albumin/Globulin Ratio 1.3, Lipase 105 04/25/20 22:37: Chlamy pneumoniae PCR Not detected, Adenovirus (PCR) Not detected, B. pertussis DNA (PCR) Not detected, Coronavirus OC43 (PCR) Not detected, Coronavirus HKU1 (PCR) Not detected, Coronavirus 229E (PCR) Not detected, COVID-19 PCR Not detected, Coronavirus NL63 (PCR) Not detected, Human Metapneumovir PCR Not detected, Influenza A (H1) PCR Not detected, Influ A (H1N1/09) PCR Not detected, Influenza A (H3) PCR Not detected, Influenza Type A (PCR) Not detected, Influenza Type B (PCR) Not detected, M. pneumoniae (PCR) Not detected, Parainfluenza 1 (PCR) Not detected, Parainfluenza 2 (PCR) Not detected, Parainfluenza 3 (PCR) Not detected, Parainfluenza 4 (PCR) Not detected, RSV (PCR) Not detected, Entero/Rhino (PCR) Not detected 04/25/20 22:47: Troponin I < 0.01 04/26/20 02:05: Troponin I < 0.01 04/26/20 06:51: WBC 9.3, RBC 3.60 L, Hgb 11.1 L, Hct 32.7 L, MCV 91.0, MCH 30.8, MCHC 33.9, RDW 13.4, Plt Count 255, MPV 7.1 L, Neut % (Auto) 81.4 H, Lymph % (Auto) 13.8, [place] % (Auto) 3.6, Eos % (Auto) 1.0, Baso % (Auto) 0.3, Neut # (Auto) 7.6, Lymph # (Auto) 1.3, [place] # (Auto) 0.3, Eos # (Auto) 0.1, Baso # (Auto) 0.0 04/26/20 06:51: Sodium 136, Potassium 4.0, Chloride 99, Carbon Dioxide 31 H, Anion Gap 10.0, BUN 16, Creatinine 0.90, Estimated Creat Clear 58, Estimated GFR 60, Est GFR ( Amer) 73 D, Glucose 149 H, Calcium 9.6, Total Bilirubin 0.5, AST 38 H, ALT 15, Alkaline Phosphatase 80, Total Protein 6.4, Albumin 3.5 D, Globulin 2.9, Albumin/Globulin Ratio 1.2 I & O for Last 24 hours: Intake & Output 04/23/20 04/24/20 04/25/20 04/26/20 23:59 23:59 23:59 23:59 Intake Total 360 / 360 Balance 360 / 360 Weight 179 lb Radiology Reports for the Last 24 Hours: Carotid Doppler shows 50% - 69% stenosis Narrative: Impression from left heart cath done today by Dr. Burns: Tortuous calcified coronary artery disease as described above Patent stent in the mid LAD and first diagonal artery Hyperdynamic ventricle consistent with diastolic dysfunction/hypertensive heart disease Elevated LVEDP also consistent with diastolic dysfunction PLAN 1. Medical management Assessment and Plan (1) Chest pain Current visit: Yes Status: Acute Category: Medical Code(s): R07.9 - Chest pain, unspecified (2) Coronary artery disease Current visit: Yes Status: Acute Category: Medical Code(s): I25.10 - Atherosclerotic heart disease of [place] coronary artery without angina pectoris (3) History of coronary artery stent placement Current visit: Yes Status: Acute Category: Surgical Code(s): Z95.5 - Presence of coronary angioplasty implant and graft (4) Hypertension Current visit: Yes Status: Acute Category: Medical Code(s): I10 - Essential (primary) hypertension
--- NOTE | 2020-04-26 20:04 | PC.NURSE ---
PATIENT A&O X4, LUNGS CLEAR. THIS RN REMOVED RADIAL BAND, CLEANED AREA, APPLIED NON ADHERENT GAUZE AND COVERED WITH TEGADERM. THIS RN STARTED THE D/C PROCESS AND INQUIRED ABOUT PATIENT'S RIDE AND PATIENT INFORMED THIS RN THAT SHE WAS GOING TO DRIVE HERSELF HOME. THIS RN INFORMED HER THAT SHE IS NOT TO DRIVE FOR 24HRS AFTER CATHETERIZATION. PATIENT STATED THAT SHE WILL CALL AROUND TO FIND A RIDE. NO OTHER NEEDS OR CONCERNS AT THIS TIME.
--- NOTE | 2020-04-28 08:54 | HMH.DCSUM ---
General - General Admission date:: 04/26/20 Discharge date: 04/26/20 HPI HPI: Ms. Levine is a 80-year-old white female admitted through the emergency department for complaint of chest pain with radiation to the neck. Patient lives alone and states that symptoms began yesterday as a heaviness but also described as a sharpness per the ER MD. Patient did try antacid and soda to see if the symptoms were related to indigestion with no relief. She did take a nitroglycerin at home but feels that it was and did not get any relief with it. She did drive herself to the ER with pain noted as a 12 out of 10 by the time she got to the ER. She was given nitroglycerin sublingual with subsequent improvement/resolution of symptoms. Patient was admitted and had nitroglycerin paste placed overnight. She continues to have some intermittent chest discomfort described as heaviness with radiation to the neck as a 5 out of 10 at times. Troponins have returned normal x3 overnight. EKG shows sinus rhythm without acute EKG changes on initial EKG. Second EKG obtained during the night shows what appears to be early repolarization abnormalities. (the above as per [facility]) Hospital Course Hospital Course: The patient was admitted and cardiology planned a heart cath for the next day. Her chest x-ray showed nothing acute. She had a carotid duplex showing stenosis of the right internal carotid at 50 to 69% and stenosis of the left internal carotid at 20 to 49%. The patient was kept overnight and her heart cath was performed the next day. Her cath showed tortuous calcified coronary artery disease but with a patent stent in the mid LAD and first diagonal artery. There was a hyperdynamic ventricle consistent with diastolic dysfunction and hypertensive heart disease as well as an elevated LVEDP consistent with diastolic dysfunction. Cardiology recommended medical management. They felt the patient could be discharged home on aspirin 81 mg, atorvastatin 80 mg, bisoprolol 2.5 mg, Aldactone 25 mg, and amlodipine 5 mg. She will follow-up with cardiology. Objective Vital signs: Temp Pulse Resp BP Pulse Ox 97.8 F 64 17 129/55 L 93 L 04/26/20 17:45 04/26/20 19:59 04/26/20 19:59 04/26/20 19:59 04/26/20 19:59 Narrative: - Constitutional no acute distress - *Routine HEENT Exam Head: Present: normocephalic Eye: Present: EOMI, PERRL ENT: Present: mucous membranes dry - *Routine Neck Exam Present: supple. Absent: lymphadenopathy - *Routine Respiratory Exam Present: CTA bilaterally - *Routine Cardiovascular Exam Present: RRR - *Routine Abdominal Exam Present: soft, normoactive bowel sounds. Absent: tenderness - *Routine Extremities Exam Absent: cyanosis, clubbing, edema - *Routine Skin Exam Present: warm. Absent: rash - *Routine Neurological Exam Present: alert, oriented X3 DS: Diagnosis - Discharge Diagnosis (1) Chest pain Status: Acute (2) Coronary artery disease Status: Acute (3) History of coronary artery stent placement Status: Acute (4) Hypertension Status: Acute (5) Hyperlipidemia associated with type 2 diabetes mellitus Status: Acute (6) Diabetes mellitus type 2 in nonobese Status: Acute (7) Carotid artery disease Status: Acute (8) Diastolic dysfunction without heart failure Status: Acute Discharge Plan - Patient Discharge Instructions ACTIVITY: Continue current activity, Limited activity DIET: low fat, low cholesterol Patient Instructions: DI for Cardiac Catheterization - Follow up Plan Follow up with: Liborio Burns MD [Staff Physician] - 1 week Disposition: Home, Self-Intermediate Medications: Home Medications Medication Instructions Recorded Confirmed Type Amlodipine Besylate 5 mg PO DAILY 09/04/18 04/26/20 History Atorvastatin Calcium [Lipitor 80mg 80 mg PO HS 09/04/18 04/26/20 History Tab]
== END 2020-04-26 20:00 | disposition home or self-care (01) ==
LOC: ER 21:57 → 2ND 04-26 02:45
PROVIDERS: Emergency Medicine; Internal Medicine; Admitting Provider Family Medicine; Emergency Provider Family Medicine; Visit Provider Family Medicine
DX: I25.110 Atherosclerotic heart disease of native coronary artery with unstable angina pectoris (principal); Z95.5 Presence of coronary angioplasty implant and graft; I11.0 Hypertensive heart disease with heart failure; I50.30 Unspecified diastolic (congestive) heart failure; Z87.891 Personal history of nicotine dependence; E11.9 Type 2 diabetes mellitus without complications; E78.5 Hyperlipidemia, unspecified; Z79.82 Long term (current) use of aspirin; Z79.899 Other long term (current) drug therapy; R06.9 Unspecified abnormalities of breathing; G45.1 Carotid artery syndrome (hemispheric)
CPT/HCPCS: 36415; 71045; 80053; 83690; 83880; 84484; 85025; 85610; 85730; 87581; 87633; 87798; 93005; 93458; 93880; 99152; 99284; C1725; C1760; C1769; G0378; J1644; Q9967

== ENCOUNTER → 2020-06-08 08:16 | Outpatient (CLI) | payer MEDICARE, BC, SELFPAY ==
--- NOTE | 2020-06-08 08:17 | CA_ITS ---
APPROVED REPORT EXAM: Comprehensive 2D, Doppler, and color-flow Echocardiogram Telemedicine Physician: Aletha Junior RVT Ht: 5 ft 7 in Wt: 174lbs BSA: 1.91 BP: 152/40 mmHg Indications: DD,CAD,HTN,EX SMOKER,DM,HLD,CP 2D Dimensions LVOT 1.84 cm (M/F) 1.5-2.5 M-Mode Dimensions RVDd 2.10 cm (0.9-2.6) LVDd 5.77 cm (3.5-5.7) LVDs 4.09 cm (3.5-5.7) IVSd 0.57 cm (0.6-1.1) PWd 0.53 cm (0.6-1.1) EF (Teich) 55.20% FS 29.10% EDV (Teich) 164.60 mL ESV (Teich) 73.80 mL LV Diastology E/A Ratio 0.91 Mitral Valve MV A Velocity 66.00 (40-130 cm/s) Left Ventricle Left atrium is mildly enlarged, left ventricle is normal size, mild concentric left ventricular hypertrophy, visually estimated ejection fraction 55% with no regional wall motion abnormality, grade 1 diastolic dysfunction seen without tissue Doppler evidence of raise left atrial pressure. Right Ventricle Right atrium and right ventricle are normal size and contractility. Aortic Valve Aortic valve is minimally thickened and fibrosed, there is no aortic stenosis or aortic insufficiency. Mitral Valve Mitral valve is grossly normal, there is mild mitral regurgitation. Tricuspid Valve Tricuspid valve grossly normal, there is mild tricuspid regurgitation, calculated right ventricular systolic pressure is within normal range. Pulmonic Valve Pulmonic valve is poorly visualized. Great Vessels Aortic root is normal size. Pericardium No significant pericardial effusion noted. Conclusion 1. Normal left ventricular size, mild concentric left ventricular hypertrophy, visually estimated ejection fraction 55% with no regional wall motion abnormality, grade 1 diastolic dysfunction seen without tissue Doppler evidence of raise left atrial pressure. 2. Mild mitral and tricuspid regurgitation, calculated right ventricular systolic pressure within normal range. 3. No significant pericardial effusion noted. Electronically signed by : Pierre Donald, 06/08/2020 14:23:00
== END ==
PROVIDERS: PCP Family Medicine; Referring Provider Urology; Visit Provider Urology
DX: E78.5 Hyperlipidemia, unspecified (principal); I10 Essential (primary) hypertension; I25.10 Atherosclerotic heart disease of native coronary artery without angina pectoris; I51.89 Other ill-defined heart diseases; I77.9 Disorder of arteries and arterioles, unspecified
CPT/HCPCS: 93306

== ENCOUNTER → 2020-08-22 12:01 | Outpatient (CLI) | payer MEDICARE, BC, SELFPAY ==
--- NOTE | 2020-08-22 12:06 | XR_ITS ---
PROCEDURE: XR LUMBAR SPINE MIN 4V CLINICAL INDICATION: fall, lumbo-sacral pain COMPARISON: CR XR LUMBAR SPINE MIN 4V from 11/08/2019 FINDINGS: No fracture or dislocation. No lytic or blastic change. There is normal mineralization. There is multilevel lumbar spondylosis with degenerative disc disease T11-S1 most severe at L4-5. There is 4 mm anterolisthesis of L3 on L4. There are endplate osteophytes. There is mild SI sclerosis on the right. No lytic or blastic change. Incidental vascular calcification is noted. Other findings:None. IMPRESSION: Multilevel lumbar spondylosis as detailed above. No acute fracture or dislocation. No significant change Dictated by: Sergey Cooper MD 08/22/2020 18:20 Sergey Cooper MD in [place] 08/22/2020 18:20
== END ==
PROVIDERS: PCP Family Medicine; Visit Provider Specialist
DX: S39.92XA Unspecified injury of lower back, initial encounter (principal); M54.5 Low back pain
CPT/HCPCS: 72110

== ENCOUNTER → 2021-06-14 13:15 | Outpatient (CLI) | payer MEDICARE, BC, SELFPAY ==
--- NOTE | 2021-06-14 13:19 | XR_ITS ---
PROCEDURE: XR WRIST LT MIN 3V CLINICAL INDICATION: BL CTS COMPARISON: No exams were available for comparison FINDINGS: No fracture or dislocation. No lytic or blastic change. There is normal mineralization. Mild osteoarthritic changes are present at the 1st carpal metacarpal joint. Other findings:None. 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
--- NOTE | 2021-06-14 13:19 | XR_ITS ---
PROCEDURE: XR WRIST RT MIN 3V CLINICAL INDICATION: BL CTS COMPARISON: No exams were available for comparison FINDINGS: No fracture or dislocation. No lytic or blastic change. There is normal mineralization. Moderate osteoarthritic changes are present at the 1st metacarpal-carpal joint. Other findings:None. IMPRESSION: Osteoarthritic change 1st metacarpal-carpal joint otherwise negative Dictated by: Sergey Cooper MD 06/14/2021 14:50 Sergey Cooper MD in [place] 06/14/2021 14:50
== END ==
PROVIDERS: PCP Family Medicine; Visit Provider Orthopaedic Surgery
DX: G56.03 Carpal tunnel syndrome, bilateral upper limbs (principal)
CPT/HCPCS: 73110

== ENCOUNTER → 2021-07-15 11:48 | Outpatient (CLI) | payer MEDICARE, BC, SELFPAY ==
--- NOTE | 2021-07-15 11:55 | XR_ITS ---
PROCEDURE: XR CERVICAL SPINE W FLEX/EXT CLINICAL INDICATION: Neck pain COMPARISON: No exams were available for comparison FINDINGS: There is normal curvature and alignment. C1 through C7 appear intact. There is disc space narrowing at the C5-6 level with minimal anterior osteophytic spurring. Oblique films show mild neural foraminal narrowing bilaterally at the C5-6 level, the remaining neural foramina appear normal. There is an apparent right internal carotid stent. There are surgical clips in the soft tissues anterior and left lateral to the C5-6 disc space level. The prevertebral soft tissues are normal and the odontoid is normal. Flexion and extension views show essentially normal range of motion. IMPRESSION: Mild degenerate disc disease C5-6 and mild bilateral neural foraminal narrowing at this level Dictated by: Dr. Demario Marc MD 07/17/2021 15:18 Dr. Demario Marc MD in [place] 07/17/2021 15:18
== END ==
PROVIDERS: PCP Family Medicine; Visit Provider Specialist
DX: G44.86 Cervicogenic headache (principal); M54.2 Cervicalgia
CPT/HCPCS: 72052

== ENCOUNTER 2021-08-02 15:00 | Outpatient (RCR) | payer MEDICARE, BC, SELFPAY ==
--- NOTE | 2021-07-17 10:56 | HMH.PTOPEV ---
PT Outpatient Evaluation Rehab PT Outpatient Evaluation Start: 07/17/21 10:33 Freq: Status: Active Protocol: Document 07/17/21 10:33 LAURA (Rec: 07/17/21 10:56 LAURA [id number]) Electronically Signed By Ethan Villarreal, PT 07/17/21 10:33 Outpatient Therapy Subjective History Subjective History Patient is an 81 years old female presenting to outpatient PT with reports of cervicogenic headaches, B shoulder pain, B CTS and L posterior thigh pain. MD order did not include B shoulder pain, though patient verbalized that this is her main concern. PT to focus on cervicogenic headaches/neck pain and LLE pain. Suggest referral to OT to address shoulder/CTS symptoms. Patient reports no LLE radicular symptoms. Comorbidities include hx of B JIMBO, stents x 4 (1 carotid), hx of diabetes, HTN and HL. Chief Complaint Pain,Stiff,Paresthesia, Weakness Symptom Type Ache,Other Symptoms Relieved By Rest/Positioning Prior Functional Limitations Reaching,Lifting,Housework, Standing,Walking Current Functional Limitations Reaching,Lifting,Housework, Standing,Walking Symptom Description Intermittent Level of pain today (0-10) 0 Pain scale - at its best (0-10) 0 Pain scale - at its worst (0-10) 9 Cervical Eval Palpation Cervical Muscles R Suboccipital,L Suboccipital, R Upper Trapezius,L Upper Trapezius Cervical/Thoracic Palpation Findings Tenderness Posture Head/C-Spine Posture Sitting Position C-Spine Flattened Head/C-Spine Posture Standing Position C-Spine Flattened Flexibility Deficits Upper Trapezius Muscle Length (R) Moderate Tightness,(L) Moderate Tightness Levaetor Scapulae Muscle Length (R) Moderate Tightness,(L) Moderate Tightness Pectoralis Minor Muscle Length (R) Moderate Tightness,(L) Moderate Tightness Passive Joint Mobility Cervical PIVM Dec: R OA L OA R AA L AA R C2/3
== END 2021-08-02 15:05 | disposition home or self-care (01) ==
LOC: PT 15:00
PROVIDERS: PCP Family Medicine; Visit Provider Specialist
DX: G44.86 Cervicogenic headache (principal); G89.29 Other chronic pain; G56.03 Carpal tunnel syndrome, bilateral upper limbs; M79.652 Pain in left thigh
CPT/HCPCS: 97110; 97163

== ENCOUNTER 2021-08-23 12:58 | Outpatient (RCR) | payer MEDICARE, BC, SELFPAY ==
--- NOTE | 2021-08-23 14:05 | HMH.OTOPEV ---
OT Inpatient Evaluation Rehab OT Outpatient Eval Start: 08/23/21 13:34 Freq: Status: Active Protocol: Document 08/23/21 13:34 TATIBHARATHI (Rec: 08/23/21 14:05 BAL [id number]) Electronically Signed By Katy Tanner, OT 08/23/21 13:34 Outpatient Therapy Subjective History Subjective History 81 year old female referred to skilled OP OT services for B carpal tunnel syndrome. Patient verbalize having pain in B wrist for the past 12 years. NCV-EMG completed on B wrist comfirming CT. Patient had schedule for CTR for B wrist, however cancelled appointment 2* having hip pain . Patient verbalize during OT OP evaluation that she has been having no pain in B hands for the past month, only tingling and numbness. Chief Complaint Stiff,Weakness,Decreased Field Auditor Strength Symptom Type Numbness,Tingling Symptoms Relieved By Prescription Meds Symptoms Aggravated By Physical Activity Prior Functional Limitations Lifting Current Functional Limitations Lifting Symptom Description Intermittent Level of pain today (0-10) 0 Pain scale - at its best (0-10) 0 Pain scale - at its worst (0-10) 8 Wrist/Hand Eval Wrist Range of Motion Right Wrist Extension Active Range of Motion ( 50 degrees) Wrist Flexion Active Range of Motion ( 70 degrees) Wrist Radial Deviation Active Range of 20 Motion (degrees) Wrist Ulnar Deviation Active Range of 20 Motion (degrees) Forearm Supination Active Range of 70 Motion (degrees) Forearm Pronation Active Range of Motion 90 (degrees) Left Wrist Extension Active Range of Motion ( 60 degrees) Wrist Flexion Active Range of Motion ( 40 degrees) Wrist Radial Deviation Active Range of 20 Motion (degrees) Wrist Ulnar Deviation Active Range of 30 Motion (degrees) Forearm Supination Active Range of 75 Motion (degrees) Forearm Pronation Active Range of Motion 90 (degrees) Field Auditor/Pinch Strength Right Field Auditor Strength Measurement (lbs) 35 Left Field Auditor Strength Measurement (lbs) 35 Special Tests Wrist Phalen Test Positive Left,Positive Right OT Outpatient Assessment Impairments Problems/Impairments Impai
== END 2021-08-23 12:59 | disposition home or self-care (01) ==
LOC: OT 12:58
PROVIDERS: PCP Family Medicine; Visit Provider Specialist
DX: G56.03 Carpal tunnel syndrome, bilateral upper limbs (principal)
CPT/HCPCS: 97165

== ENCOUNTER 2022-04-26 16:50 | Emergency (ER) | payer MEDICARE, BC, SELFPAY ==
[2022-04-26 17:00] VITALS: BP 115/72; PULSE 76; RESP 19; TEMP 36.8; O2SAT 98; BMI 25.9
--- NOTE | 2022-04-26 17:32 | HMH.EDUTC ---
[facility] Disposition Clinical Impression: Black head Disposition: Home, Self-Care Condition on Discharge: Good Instructions: DI for Acne Additional Instructions: keep area clean and dry monitor for s/s of infection Referrals: Gee Mares MD [Primary Care Provider] - Time of Disposition: 17:36 Medical Decision Making - Antwan Inquiry Pt receiving controlled substance: No [facility] HPI - General Chief complaint: Urgent Treatment Center Stated complaint: Spot on back Time Seen by Provider: 04/26/22 17:32 Mode of Arrival: Ambulatory Source of Information: Patient Limitations: No Limitations - History of Present Illness Provider Complaint: 82 yr old female presents for black spot on upper back. pt states it does not hurt her daughter pointed it out yesterday. - Related Data Home Medications Medication Instructions Recorded Confirmed Gabapentin [Gabapentin 300mg Cap] 600 mg PO BID 09/04/18 03/14/22 Aspirin [Aspirin 81mg chewable 81 mg PO DAILY 11/03/18 03/14/22 tab] multivitamin 1 tab PO DAILY 04/24/21 03/14/22 pyridoxine (vitamin B6) 100 mg 100 mg PO DAILY tab 04/24/21 03/14/22 tablet Previous Rx's Medication Instructions Recorded amlodipine 10 mg tablet 5 mg PO DAILY #90 tab 06/04/20 atorvastatin 80 mg tablet 80 mg PO HS #90 tab 06/04/20 bisoprolol fumarate 5 mg tablet 2.5 mg PO DAILY #90 tab 06/04/20 spironolactone 25 mg tablet 25 mg PO DAILY #90 tab 06/04/20 amitriptyline 10 mg tablet 10 mg PO HS #30 tab 02/13/22 Allergies Allergy/AdvReac Type Severity Reaction Status Date / Time No Known Allergies Allergy Verified 03/14/22 10:12 [facility] History - Hepatitis A Screen Attestation statement:: This patient has been screened for Hepatitis A risk factors. I have reviewed the patient's past medical history: Yes Medical History: Reports:: Coronary Artery Disease, Diabetes Mellitus Type 2, Hyperlipidemia, Hypertension Denies:: Cancer, Diabetes Mellitus Type 1, Internal Pacemaker, MRSA Other Medical History: Reports: Arthritis, Cataracts, Other Comment: LILLY Laterality Cases: Left: Carotid Endarterectomy, Bilateral: Tonsillectomy, Total Hip Replacement Other Surgeries: Yes: Appendectomy, Cardiac Catheterization, Coronary Stent, Hysterectomy-Total, Hysterectomy-Partial. No: Pacemaker Amputation: No Fractures: No - Social History Smoking Status: Former smoker Tobacco Type: cigarettes #Yrs smoked (if former smoker): 30 Alcohol Intake: former Alcohol Intake Frequency:: other Substance Use Type: denies use Occupational Status: retired Housing: house Household Members: none Family Hx:: Cancer, Diabetes, Hyperlipidemia, Hypertension ROS Obtained: Yes Systems reviewed as appropriate & no additional complaints - Constitutional Constitutional: Reports system reviewed and no additional complaints, except as docu, Denies fever(s) - Eyes Eyes: Reports system reviewed and no additional complaints, except as docu, Denies dry eyes - ENT Ears, Nose, Mouth, and Throat: Reports system reviewed and no additional complaints, except as docu, Denies dizziness - Cardiovascular Cardiovascular: Reports system reviewed and no additional complaints, except as docu, Denies chest pain - Respiratory Respiratory: Reports system reviewed and no additional complaints, except as docu, Denies shortness of breath - Gastrointestinal Gastrointestingal: Reports: system reviewed and no additional complaints, except as docu. Denies: abdominal pain - Musculoskeletal Musculoskeletal: Reports system reviewed and no additional complaints, except as docu, Denies joint pain - Integumentary/Breasts Skin/Breast: Reports system reviewed and no additional complaints, except as docu, Reports as per HPI, Reports other - Neurologic Neurologic: Reports system reviewed and no additional complaints, except as docu, Denies dizziness - Endocrine Endocrine: Reports system reviewed and no additional complaints, except as d
[2022-04-26 17:36] VITALS: BP 115/72; PULSE 76; RESP 19; TEMP 36.8; O2SAT 98
== END 2022-04-26 17:40 | disposition home or self-care (01) ==
PROVIDERS: Emergency Provider Nurse Practitioner Family; PCP Emergency Medicine
DX: L70.0 Acne vulgaris (principal); I25.10 Atherosclerotic heart disease of native coronary artery without angina pectoris; E11.9 Type 2 diabetes mellitus without complications; E78.5 Hyperlipidemia, unspecified; I10 Essential (primary) hypertension; M19.90 Unspecified osteoarthritis, unspecified site; Z95.5 Presence of coronary angioplasty implant and graft; Z87.891 Personal history of nicotine dependence; Z96.649 Presence of unspecified artificial hip joint; Z82.49 Family history of ischemic heart disease and other diseases of the circulatory system; Z83.3 Family history of diabetes mellitus; Z80.9 Family history of malignant neoplasm, unspecified
CPT/HCPCS: 99212; G0463

== ENCOUNTER 2022-12-14 22:17 | Emergency (ER) | payer MEDICARE, BC, SELFPAY ==
[2022-12-14 22:18] VITALS: BP 178/73; PULSE 88; RESP 17; TEMP 36.4; O2SAT 98; BMI 25.7
[2022-12-14 22:37] VITALS: BP 203/71; PULSE 98; RESP 18; O2SAT 99
[2022-12-14 22:38] VITALS: BP 178/73; PULSE 91; RESP 16; O2SAT 99
--- NOTE | 2022-12-14 22:47 | CT_ITS ---
PROCEDURE INFORMATION: Exam: CT Abdomen And Pelvis Without Contrast Exam date and time: 12/14/2022 11:24 PM Age: 82 years old Clinical indication: Other: Urinary retention TECHNIQUE: Imaging protocol: Computed tomography of the abdomen and pelvis without contrast. Radiation optimization: All CT scans at this facility use at least one of these dose optimization techniques: automated exposure control; mA and/or kV adjustment per patient size (includes targeted exams where dose is matched to clinical indication); or iterative reconstruction. REPORTING DATA: Count of CT and Cardiac NM exams in prior 12 months: This patient has received 0 known CTs and 0 known cardiac nuclear medicine studies in the 12 months prior to the current study. COMPARISON: CR XR PELVIS 1-2V 11/08/2019 9:33 PM FINDINGS: Lungs: In the lung bases there is mild atelectasis. Liver: Normal. No mass. Gallbladder and bile ducts: Gallstones. Pancreas: Normal. No ductal dilation. Spleen: Normal. No splenomegaly. Adrenal glands: Normal. No mass. Kidneys and ureters: Parapelvic cysts in the left and right kidney. No hydronephrosis. Stomach and bowel: Constipation. No colitis. No small bowel obstruction. Distended stomach with air-fluid level. No small bowel obstruction. Appendix: No evidence of appendicitis. Intraperitoneal space: Unremarkable. No free air. No significant fluid collection. Vasculature: Arthrosclerotic calcifications in the aorta. No abdominal aortic aneurysm. Lymph nodes: Unremarkable. No enlarged lymph nodes. Urinary bladder: Unremarkable as visualized. Reproductive: Hysterectomy. Bones/joints: Streak artifact from bilateral hip arthroplasty limiting evaluation in the pelvis. Multilevel degenerative changes in the lumbar spine. Soft tissues: A small calcified mass in the left iliopsoas muscle measuring 2.2 cm. This could reflect a chronic hematoma. IMPRESSION: 1. No acute findings. 2. Cholelithiasis. 3. Distended stomach with air-fluid level but no small bowel obstruction. No colitis. COMMENTS: Consistent with the [employer]'s Incidental Findings Committee white paper (J Am [employer]iti Radiol 2018): Any incidental renal lesion less than 1 cm or classified as too small to characterize, or any incidental cystic renal lesion characterized as simple-appearing, is likely benign. No follow-up imaging is recommended for these lesions per consensus recommendations based on imaging criteria.
[2022-12-14 23:00] VITALS: BP 163/73; PULSE 86; RESP 18; O2SAT 97
[2022-12-14 23:04] LABS: Microscopic, Urine URINE MICROSCOPIC (MICROSCOPIC)
[2022-12-14 23:09] LABS: Basophils # 0.1 K/mm3 (0-0.2); Basophils % 0.6 % (0.1-2.0); Eosinophils # 0.1 K/mm3 (0.0-0.4); Eosinophils % 1.5 % (0.1-12.0); Hematocrit 38.2 % (37.0-47.0); Hemoglobin 12.1 g/dL (12.2-16.2); Lymphocytes # 1.6 K/mm3 (0.7-4.5); Lymphocytes % 21.6 % (10-50); Mean Corpuscular HGB Conc 31.6 g/dL (31.8-35.4); Mean Corpuscular Hemoglobin 28.8 pg (27.0-31.2); Mean Corpuscular Volume 91.1 fl (81-99); Mean Platelet Volume 7.4 fl (7.4-10.4); Monocytes # 0.3 K/mm3 (0.1-1.0); Monocytes % 3.5 % (1.7-9.3); Neutrophils # 5.3 K/mm3 (1.8-7.8); Neutrophils % 72.7 % (37.0-80.0); Platelet Count 369 K/mm3 (142-424); Red Blood Count 4.19 M/mm3 (4.20-5.40); Red Cell Distribution Width 14.1 % (11.5-17.5); White Blood Count 7.3 K/mm3 (4.8-10.8)
[2022-12-14 23:19] LABS: Chloride 100 mmol/L (98-107); Potassium 3.9 mmoL/L (3.5-5.1); Sodium 137 mmol/L (136-145)
[2022-12-14 23:21] LABS: Blood Urea Nitrogen 30 mg/dl (7-17); Creatinine Clearance Estimated 45 mL/min (50-200); Estimated Glomerular Filt Rate 48 ml/min (>60); GFR (African American) 58 ML/MIN (>60)
[2022-12-14 23:22] LABS: Albumin Level 4.6 g/dl (3.5-5.0); Albumin/Globulin Ratio 1.4 (1.1-1.8); Alkaline Phosphatase 67 U/L (38-126); Anion Gap 10.9 mEq/L (5-15); Aspartate Amino Transferase 49 U/L (14-36); Bilirubin,Total 0.4 mg/dl (0.2-1.3); Calcium 9.7 mg/dl (8.4-10.2); Carbon Dioxide 30 mmol/L (22.0-30.0); Globulin 3.2 g/dL (1.3-3.2); Glucose 160 mg/dl (74-100); Total Protein,Serum 7.8 g/dl (6.3-8.2)
[2022-12-14 23:23] LABS: Alanine Aminotransferase 21 U/L (12-78)
[2022-12-14 23:36] LABS: Appearance,Urine CLEAR (Clear); Bilirubin,Urine Negative (Negative); Blood, Urine 1+ (Negative); Color,Urine YELLOW (Yellow); Glucose,Urine (UA) Negative (Negative); Ketones,Urine Negative (Negative); Leukocyte Esterase,Urine 1+ (Negative); Nitrate,Urine POSITIVE (Negative); PH,Urine 5.5 (5.0-8.5); Protein,Urine Negative (Negative); Specific Gravity, Urine 1.015 (1.005-1.030); Urobilinogen,Urine 0.2 EU/dl (0.2)
--- NOTE | 2022-12-14 23:48 | PC.NURSE ---
Rounded on pt. Pt provided with warm blanket. No other needs voiced.
[2022-12-15 00:01] VITALS: BP 160/66; PULSE 78; RESP 18; O2SAT 98
[2022-12-15 00:06] LABS: Bacteria,Urine 4+ /lpf
[2022-12-15 00:31] VITALS: BP 183/64; PULSE 92; RESP 16; O2SAT 98
--- NOTE | 2022-12-15 01:06 | HMH.EDUROGF ---
Discharge Plan Disposition Patient Disposition: Home, Self-Care Prescriptions Prescriptions: New levofloxacin 500 mg tablet 500 mg PO DAILY Qty: 7 0RF No Action gabapentin 600 mg tablet 600 mg PO BID Qty: 60 0RF aspirin [Adult Aspirin Regimen] 81 mg tablet,delayed release (DR/EC) 81 mg PO DAILY multivitamin Tablet 1 tab PO DAILY amlodipine 5 mg tablet 5 mg PO DAILY Qty: 90 0RF atorvastatin 80 mg tablet 80 mg PO HS Qty: 90 0RF pyridoxine (vitamin B6) 100 mg tablet 100 mg PO DAILY Qty: 90 0RF spironolactone 25 mg tablet 25 mg PO DAILY Qty: 90 0RF bisoprolol fumarate 5 mg tablet 2.5 mg PO DAILY Qty: 90 0RF Referrals Follow up/Referrals: Gee Mares MD [Primary Care Provider] - See instructions Chandra Brandon MD [Referring] - See instructions Clinical Impressions Clinical Impression: Acute urinary retention, Acute UTI (urinary tract infection), Hypertension Instructions Patient Instructions: DI for Urinary Tract Infection (UTI) Discharge ED Provider: Vishnu (ED)Gee Female Urogenital HPI General Chief complaint: Urogenital-Female Stated complaint: Possible UTI Time Seen by Provider: 12/15/22 01:07 Mode of Arrival: Ambulatory Source of Information: Patient, Relative and Medical Record Limitations: No Limitations Description of Symptoms (Recalled from ER Triage Doc. by RN): pt to ED with increased urinary frequecy and urgency and generalized abd. pain since yesterday with out new fevers or chills History of Present Illness HPI Narrative: pt with abd pain and urinary sx and dec ability to urinate - no hematuria Complaint: dysuria and pelvic pain Onset (ago): day(s) Location: suprapubic Severity: moderate Duration: intermittent Urinary Symptoms: dysuria and frequency Associated symptoms: other (has episodes of urge incont at times ) Related Data Home Medications Medication Instructions Recorded Confirmed aspirin 81 mg tablet,delayed 81 mg PO DAILY 08/06/22 09/17/22 release (Adult Aspirin Regimen) multivitamin 1 tab PO DAILY 08/06/22 09/17/22 Previous Rx's Medication Instructions Recorded amlodipine 5 mg tablet 5 mg PO DAILY #90 tabs 08/06/22 atorvastatin 80 mg tablet 80 mg PO HS #90 tabs 08/06/22 bisoprolol fumarate 5 mg tablet 2.5 mg PO DAILY #90 tabs 08/06/22 pyridoxine (vitamin B6) 100 mg 100 mg PO DAILY #90 tabs 08/06/22 tablet spironolactone 25 mg tablet 25 mg PO DAILY #90 tabs 08/06/22 gabapentin 600 mg tablet 600 mg PO BID #60 tabs 09/17/22 levofloxacin 500 mg tablet 500 mg PO DAILY #7 tabs 12/15/22 Allergies Allergy/AdvReac Type Severity Reaction Status Date / Time No Known Allergies Allergy Verified 09/17/22 13:28 [facility] Disclaimer: The information contained in this section may have been updated after the patient was seen, as this information can be updated by other users. Social History Smoking Status: Never smoker alcohol intake: former substance use type: denies use current occupational status: retired Travel in the last 8 weeks: None household members: none housing: house caffeine: No ROS Obtained: Yes All systems reviewed & no additional complaints except as documented Physical Exam General General appearance: alert Head Head exam: normocephalic Eye Eye exam: Present PERRL and EOMI ENT ENT exam: Present mucous membranes moist Neck Neck exam: Present trachea midline Respiratory Respiratory exam: Absent respiratory distress Cardiovascular Cardiovascular exam: Present regular rate Abdominal Exam Abdominal exam: Present soft Abdominal tenderness: Present suprapubic and mild Extremities Exam Extremities exam: Present full ROM Neurological Exam Neurological exam: Present alert, oriented X3 and CN II-XII intact; Absent motor sensory deficit Psychiatric Psychiatric exam: Present normal affect Skin Skin exam: Absent
--- NOTE | 2022-12-15 01:12 | PC.NURSE ---
Dr. Mares at
[2022-12-15 01:29] VITALS: BP 169/72; PULSE 91; RESP 16; TEMP 36.4; O2SAT 97
== END 2022-12-15 01:31 | disposition home or self-care (01) ==
PROVIDERS: Emergency Provider Emergency Medicine; PCP Emergency Medicine
DX: R10.2 Pelvic and perineal pain (principal); N39.41 Urge incontinence
CPT/HCPCS: 74176; 80053; 81001; 85025; 87086; 87088; 87186; 96374; 99284; 99285; J0696

== ENCOUNTER → 2023-01-23 12:53 | Outpatient (CLI) | payer MEDICARE, BC, SELFPAY ==
--- NOTE | 2023-01-23 12:59 | XR_ITS ---
FINAL REPORT CLINICAL HISTORY: R Knee Pain FINDINGS: Right knee Three views were obtained. There is no acute fracture or dislocation. There is mild osteophyte formation along the superior and inferior margins of the patella. There is mild osteophyte formation in the lateral compartment joint space of the knee. No soft tissue abnormality is identified. IMPRESSION: Changes of osteoarthritis. Reviewed, Interpreted and Dictated by Hasmukh Shrestha MD Transcribed by Amee Ortiz Authenticated and . [facility]
--- NOTE | 2023-01-23 13:01 | XR_ITS ---
FINAL REPORT CLINICAL HISTORY: RT wrist pain COMPARISON: 06/14/2021 FINDINGS: Right wrist Three views were obtained. There is no acute fracture or dislocation. There are advanced hypertrophic changes of osteoarthritis of the basilar joint. No soft tissue abnormality is identified. IMPRESSION: Advanced changes of osteoarthritis. Reviewed, Interpreted and Dictated by Hasmukh Shrestha MD Transcribed by Amee Ortiz Authenticated and . [facility]
--- NOTE | 2023-01-23 13:01 | XR_ITS ---
FINAL REPORT CLINICAL HISTORY: CTS COMPARISON: 06/14/2021 FINDINGS: Left wrist Three views were obtained. There is no acute fracture or dislocation. There are moderate hypertrophic changes at the basilar joint. There is subchondral sclerosis and osteophyte formation consistent with osteoarthritis. No soft tissue abnormality is identified. IMPRESSION: Osteoarthritis. Reviewed, Interpreted and Dictated by Hasmukh Shrestha MD Transcribed by Amee Ortiz Authenticated and . [facility]
--- NOTE | 2023-01-23 14:28 | ECG_ITS ---
APPROVED REPORT Exam: Resting ECG HR:54 bpm ECG Measurements Heart Rate 54 AXES NJ 172 P 61 QRSd 90 QRS 28 QT 386 T 52 QTc 372 Conclusion SINUS BRADYCARDIA BORDERLINE ECG UNCONFIRMED REPORT Electronically signed by : Yogesh Curran MD 01/24/2023 15:52:43
--- NOTE | 2023-01-23 14:44 | XR_ITS ---
FINAL REPORT TECHNIQUE: Chest PA & Lateral CLINICAL HISTORY: carpal tunnel release COMPARISON: 04/25/2020 FINDINGS: 2 views of the chest were performed. The heart size is normal. The mediastinum is within normal limits. There is no acute cardiopulmonary process. There are no pleural effusions. There is no pneumothorax. The bony thorax appears intact. IMPRESSION: No acute cardiopulmonary process. Reviewed, Interpreted and Dictated by Hasmukh Shrestha MD Transcribed by Abi Jorge Authenticated and [facility]
[2023-01-23 14:59] LABS: Basophils # 0.1 K/mm3 (0-0.2); Basophils % 0.5 % (0.1-2.0); Eosinophils # 0.1 K/mm3 (0.0-0.4); Eosinophils % 1.3 % (0.1-12.0); Hematocrit 40.7 % (37.0-47.0); Hemoglobin 13.1 g/dL (12.2-16.2); Lymphocytes # 1.5 K/mm3 (0.7-4.5); Lymphocytes % 14.9 % (10-50); Mean Corpuscular HGB Conc 32.1 g/dL (31.8-35.4); Mean Corpuscular Hemoglobin 29.5 pg (27.0-31.2); Mean Corpuscular Volume 91.9 fl (81-99); Mean Platelet Volume 7.3 fl (7.4-10.4); Monocytes # 0.4 K/mm3 (0.1-1.0); Monocytes % 3.5 % (1.7-9.3); Neutrophils % 79.8 % (37.0-80.0); Platelet Count 386 K/mm3 (142-424); Red Blood Count 4.43 M/mm3 (4.20-5.40); Red Cell Distribution Width 13.2 % (11.5-17.5); White Blood Count 10.1 K/mm3 (4.8-10.8)
[2023-01-23 15:33] LABS: Anion Gap 14.6 mEq/L (5-15); Blood Urea Nitrogen 25 mg/dl (7-17); Calcium 10.1 mg/dl (8.4-10.2); Carbon Dioxide 30 mmol/L (22.0-30.0); Chloride 98 mmol/L (98-107); Estimated Glomerular Filt Rate 31 ml/min (>60); GFR (African American) 37 ML/MIN (>60); Glucose 111 mg/dl (74-100); Potassium 4.6 mmoL/L (3.5-5.1); Sodium 138 mmol/L (136-145)
== END ==
PROVIDERS: PCP Nurse Practitioner Family; Visit Provider Orthopaedic Surgery
DX: G56.03 Carpal tunnel syndrome, bilateral upper limbs; M25.561 Pain in right knee; Z01.818 Encounter for other preprocedural examination
CPT/HCPCS: 36415; 71046; 73110; 73562; 80048; 85025; 93005

== ENCOUNTER 2023-02-06 09:22 | Day surgery (SDC) | payer MEDICARE, BC, SELFPAY ==
--- NOTE | 2023-02-06 09:56 | P.PN_ITS ---
[facility] Disclaimer: The information contained in this section may have been updated after the patient was seen, as this information can be updated by other users. Social History Smoking Status: Never smoker alcohol intake: former substance use type: denies use current occupational status: retired Travel in the last 8 weeks: None household members: none housing: house caffeine: No [facility] Anesthesia Checklist Patient Identification Patient Identification: Arm Band and Verbal (Name & ) Structural Data Admitted From: Home Planned Operative Procedure/s: CTR Consent for Planned Operative Procedure(s) Verified: Yes NPO Status Verified Time NPO: 00:00 Chart Verification Results Verified: CBC and BMP Airway Assessment C-Spine Mobility Assessed: Yes TMJ Mobility Assessed: Yes Dentition: Poor Dentition Neurological Assessment Level of Consciousness: Awake Hx Seizures: No Numbness or tingling in extremities: Yes Anesthesia Plan Anesthesia Risk discussed: Yes Anesthesia Plan: Verified ASA Class: III Anesthesia Type: MAC
[2023-02-06 10:13] VITALS: BP 139/60; PULSE 60; RESP 18; TEMP 36.1; O2SAT 95; BMI 24.3
[2023-02-06 14:19] VITALS: BP 171/80; PULSE 71; RESP 18; TEMP 36.3; O2SAT 94
--- NOTE | 2023-02-06 14:25 | EXP.OP.NOTE ---
Date of procedure: 02/06/23 Pre-op Diagnosis:: Right carpal tunnel syndrome Post-op Diagnosis:: Same Procedure performed:: Right endoscopic carpal tunnel lease Surgeon:: Marcelo Howard JR, MD Anesthesia: MAC Estimated blood loss (mL): 5 Clinical Note:: 82-year-old female with right carpal tunnel syndrome refractory to conservative measures. I had a discussion with her regarding further management. After discussion of risk, benefits, alternatives, she wished to proceed with right endoscopic carpal tunnel release. Operative findings:: Release of the transverse carpal ligament was confirmed endoscopically as well as via palpation and visually. Operative note:: Patient was identified in preoperative holding. Operative site was marked in indelible ink. History, physical, consent were reviewed and updated. Patient was surrendered to the anesthesia team, taken to the operative suite, placed supine on a well-padded operative table. A nonsterile tourniquet placed on the proximal brachium. Anesthesia was induced. The operative extremity was prepped and draped in the usual sterile fashion. The operative team donned sterile gowns and gloves and a timeout was called. All in attendance agreed regarding the patient's identity, procedure, operative site. Weight-based dose of antibiotics was given prior to incision. I made a transverse incision at the proximal wrist crease proximal to the transverse carpal ligament. I bluntly dissected through skin and subcutaneous tissue with care taken to avoid injuring the palmaris longus. I transected the fascia, inserted a dilating probe deep to the transverse carpal ligament and noted its depth distal to the transverse carpal ligament. I then inserted a cannula and scope, visualize the fibers of the transverse carpal ligament. I took to the distal aspect of the transverse carpal ligament to confirm its location, then with a curved blade under endoscopic visualization, transected the fibers of the transverse carpal ligament and noted that they retracted medially and laterally. I removed the cannula, achieved hemostasis, closed with Monocryl, Prineo and Dermabond. Dressings were applied. Counts were correct x2. There were no apparent complications. I was present scrubbed for the entire case. Postoperatively, plan to leave dressing in place for 5 days, then remove all but Prineo. Okay to shower but do not soak wound at that point. Finger mobility, limit weightbearing to 10 pounds until follow-up in 2 weeks at which point I anticipate initiating physical therapy. Condition: stable Disposition: PACU Complications:: None.
[2023-02-06 14:29] VITALS: BP 178/86; PULSE 65; RESP 18; O2SAT 96
[2023-02-06 14:33] VITALS: TEMP 43
--- NOTE | 2023-02-06 14:33 | SUR.OPER ---
1355- ONE GRAM OF ANCEF ORDERED PER MD. MANDO DOHERTY AT 1355. PATIENT RECEIVED A TOTAL OF 2 GRAMS OF ANCEF.
[2023-02-06 14:39] VITALS: BP 162/74; PULSE 60; RESP 18; O2SAT 97
[2023-02-06 14:49] VITALS: BP 159/83; PULSE 60; RESP 18; O2SAT 95
--- NOTE | 2023-02-06 15:15 | SUR.PHASEII ---
Noted additional discharge instructions in operative note after pt was discharged. TC to pt and left message with pt to leave dressing in place for 5 days instead of 3 that this RN told her in post op and reinforced that can shower after the 5 days with no soaking in water.
== END 2023-02-06 14:53 | disposition home or self-care (01) ==
PROVIDERS: PCP Nurse Practitioner Family; Visit Provider Orthopaedic Surgery
PROC: (CPT 64721; principal; 2023-02-06 11:15)
DX: G56.01 Carpal tunnel syndrome, right upper limb (principal)
CPT/HCPCS: 64721; 96374

== ENCOUNTER 2023-02-25 19:49 | Emergency (ER) | payer MEDICARE, BC, SELFPAY ==
[2023-02-25 19:50] VITALS: BP 197/69; PULSE 77; RESP 18; TEMP 36.8; O2SAT 96; BMI 24.2
--- NOTE | 2023-02-25 20:09 | EXP.UTC ---
Discharge Plan Disposition Patient Disposition: Home, Self-Care Condition: Good Prescriptions Prescriptions: New doxycycline hyclate [doxycycline hyclate] 100 mg capsule 100 mg PO Q12 10 Days Qty: 20 0RF mupirocin 2 % ointment 1 applic topical TID 7 Days Qty: 15 0RF No Action aspirin [Adult Aspirin Regimen] 81 mg tablet,delayed release (DR/EC) 81 mg PO DAILY multivitamin Tablet 1 tab PO DAILY gabapentin 600 mg tablet 600 mg PO BID Qty: 60 0RF atorvastatin 80 mg tablet 80 mg PO HS amlodipine 5 mg tablet 5 mg PO DAILY spironolactone 25 mg tablet 25 mg PO DAILY bisoprolol fumarate 5 mg tablet 2.5 mg PO DAILY pyridoxine (vitamin B6) 100 mg tablet 100 mg PO DAILY cephalexin 500 mg capsule 500 mg PO QID Qty: 20 0RF oxycodone 5 mg tablet 5 mg PO Q4H PRN (Reason: pain) Qty: 15 0RF Referrals Follow up/Referrals: Prem Tovar APRN [Primary Care Provider] - See instructions Activity Restrictions/Add. Instructions Additional Instructions/Restrictions: Apply warm wet compresses to the affected sites three or four times per day for 15 minutes as tolerated. Take the antibiotics as directed. Follow up with your regular doctor. GO TO THE ER FOR ANY WORSENING SYMPTOMS OR CONCERNS Clinical Impressions Clinical Impression: Cellulitis of forearm, left, Tick bite Instructions Patient Instructions: Cellulitis, Protect Yourself from Tickborne Illnesses Discharge ED Provider: Marino Dee [facility] General Stated complaint: tick bite, pain Mode of Arrival: Ambulatory Source of Information: Patient Limitations: No Limitations Time Seen by Provider: 02/25/23 20:09 Description of Symptoms (Recalled from Triage Doc. by RN): Patient reports an infected tick bite on her left arm for 1 week now. HEENT Symptoms (Recalled from RN notes): No Resp Symptoms (Recalled from RN notes): No Skin Symptoms (Recalled from RN notes): Yes MS Symptoms (Recalled from RN notes): No Functional Status (Recalled from RN notes): wnl History of Present Illness Provider Complaint: She has had a red area on her left forearm for the past 1 week after finding a tick embedded on her in that area. She denies any fever/chills. Related Data Home Medications Medication Instructions Recorded Confirmed aspirin 81 mg tablet,delayed 81 mg PO DAILY [facility] 08/06/22 02/20/23 release (Adult Aspirin Regimen) multivitamin 1 tab PO DAILY Supplement 08/06/22 02/20/23 amlodipine 5 mg tablet 5 mg PO DAILY bp 02/06/23 02/20/23 atorvastatin 80 mg tablet 80 mg PO HS Cholesterol 02/06/23 02/20/23 bisoprolol fumarate 5 mg tablet 2.5 mg PO DAILY bp 02/06/23 02/20/23 pyridoxine (vitamin B6) 100 mg 100 mg PO DAILY Supplement 02/06/23 02/20/23 tablet spironolactone 25 mg tablet 25 mg PO DAILY Fluid 02/06/23 02/20/23 Previous Rx's Medication Instructions Recorded cephalexin 500 mg capsule 500 mg PO QID #20 caps 02/06/23 oxycodone 5 mg tablet 5 mg PO Q4H PRN pain #15 tabs 02/06/23 gabapentin 600 mg tablet 600 mg PO BID Pain #60 tabs 02/18/23 doxycycline hyclate 100 mg capsule 100 mg PO Q12 10 days #20 caps 02/25/23 mupirocin 2 % topical ointment 1 applic topical TID 7 days #15 02/25/23 grams Allergies Allergy/AdvReac Type Severity Reaction Status Date / Time No Known Allergies Allergy Verified 02/20/23 14:29 Worker's Comp Is this a Worker's Comp case?: No [facility] Disclaimer: The information contained in this section may have been updated after the patient was seen, as this information can be updated by other users. Medical History CAD (coronary artery disease) CVA (cerebral vascular accident) HLD (hyperlipidemia) HTN (hypertension) Surgical History History of cataract surgery History of hip surgery History of intravascular stent placement Family H
[2023-02-25 20:21] VITALS: BP 197/69; PULSE 77; RESP 18; TEMP 36.8; O2SAT 96
== END 2023-02-25 20:28 | disposition home or self-care (01) ==
PROVIDERS: Emergency Provider Nurse Practitioner Family; PCP Nurse Practitioner Family
DX: L03.114 Cellulitis of left upper limb (principal); S50.862A Insect bite (nonvenomous) of left forearm, initial encounter; W57.XXXA Bitten or stung by nonvenomous insect and other nonvenomous arthropods, initial encounter; I25.10 Atherosclerotic heart disease of native coronary artery without angina pectoris; I10 Essential (primary) hypertension; E78.5 Hyperlipidemia, unspecified
CPT/HCPCS: 99212; 99214; G0463

== ENCOUNTER 2023-03-26 15:00 | Outpatient (RCR) | payer MEDICARE, BC, SELFPAY ==
--- NOTE | 2023-02-27 15:13 | HMH.OTOPEV ---
OT Inpatient Evaluation Rehab OT Outpatient Eval Start: 02/27/23 14:36 Freq: Status: Active Protocol: Document 02/27/23 15:02 NOY (Rec: 02/27/23 15:13 [id number] E-signed By Avelina Marion, OT Outpatient Therapy Subjective History Subjective History Pt is a 83 year old female who reports to therapy for initial evaluation to right wrist following a Carpal Tunnel release on 02/06/23. Pt reports her pain has improved , but she is still experiencing numbness in her right thumb, index, and middle finger. Pt is right hand dominant. Pt does demonstrate with a slight decline in AROM and strength at right wrist. Her welfare aide strength in right hand is also weaker than her left. Pt will continue to be seen in order to address all of these deficits. STG R hand welfare aide strength: 30 lbs LTG R hand welfare aide strength: 35 lbs Chief Complaint Pain,Stiff,Paresthesia, Weakness,Decreased Test And Balance Engineer Strength Symptom Type Ache,Throb,Dull,Numbness Symptoms Relieved By Rest/Positioning Symptoms Aggravated By Physical Activity,Lifting Prior Functional Limitations None Current Functional Limitations Lifting,Housework,Sleeping, Recreation Activity Symptom Description Intermittent,Activity Dependent Level of pain today (0-10) 2 Pain scale - at its best (0-10) 0 Pain scale - at its worst (0-10) 10 Wrist/Hand Eval Wrist Range of Motion Right Wrist Extension Active Range of Motion ( 42 degrees degrees) Wrist Flexion Active Range of Motion ( 52 degrees degrees) Wrist Radial Deviation Active Range of 30 degrees Motion (degrees) Wrist Ulnar Deviation Active Range of 30 degrees Motion (degrees) Forearm Supination Active Range of 90 degrees Motion (degrees) Forearm Pronation Active Range of Motion 90 degrees (degrees) Wrist Manual Muscle Testing Right Wrist Extension Strength Grade 3- Fair- Wrist Flexion Strength Grade 3- Fair- Wrist Radial Deviation Strength Grade 3- Fair-
== END 2023-03-26 16:20 | disposition home or self-care (01) ==
LOC: OT 15:00
PROVIDERS: PCP Nurse Practitioner Family; Visit Provider Orthopaedic Surgery
DX: G56.01 Carpal tunnel syndrome, right upper limb (principal); Z48.811 Encounter for surgical aftercare following surgery on the nervous system
CPT/HCPCS: 97010; 97014; 97035; 97110; 97140; 97166; 97530; G0283

== ENCOUNTER 2024-05-21 04:01 | Emergency (ER) | payer MEDICARE, BC, SELFPAY ==
[2024-05-21 04:03] VITALS: BP 205/104; PULSE 91; RESP 20; TEMP 36.7; O2SAT 97; BMI 25.0
--- NOTE | 2024-05-21 04:08 | HMH.EDGENADL ---
Discharge Plan Disposition Patient Disposition: Home, Self-Care Prescriptions Prescriptions: No Action aspirin [Adult Aspirin Regimen] 81 mg tablet,delayed release (DR/EC) 81 mg PO DAILY multivitamin Tablet 1 tab PO DAILY gabapentin 600 mg tablet 600 mg PO BID Qty: 60 0RF atorvastatin 80 mg tablet 80 mg PO HS amlodipine 5 mg tablet 5 mg PO DAILY spironolactone 25 mg tablet 25 mg PO DAILY bisoprolol fumarate 5 mg tablet 2.5 mg PO DAILY pyridoxine (vitamin B6) 100 mg tablet 100 mg PO DAILY mupirocin 2 % ointment 1 applic topical TID 7 Days Qty: 15 0RF Referrals Follow up/Referrals: Prem Tovar APRN [Primary Care Provider] - See instructions Activity Restrictions/Add. Instructions Additional Instructions/Restrictions: Please follow-up with your primary care provider. Please return to the emergency department if you develop any new or worsening symptoms or become concerned for your health. Please take Benadryl and use topical steroid cream as needed. Clinical Impressions Clinical Impression: Rash Print Language Print Language: Ukrainian Discharge ED Provider: Marek Anders General Adult HPI General Chief complaint: Allergic Reaction Stated complaint: rash abd, both arms Time Seen by Provider: 05/21/24 04:08 History of Present Illness HPI narrative: 84-year-old female who denies significant past medical history presents for generalized rash. She reports that started this afternoon and is present on her bilateral arms, chest about abdomen and back. She denies any shortness of breath, throat swelling, mouth swelling etc. She has had no new laundry detergents, soaps, close etc. She does have a cat and recently picked the cat up from the bed, but she is not allergic to cats. She denies any exposure to poison jose [place] poison oak etc. Reports it is very itchy and somewhat painful. Related Data Home Medications ?Medication ?Instructions ?Recorded ?Confirmed aspirin 81 mg tablet,delayed 81 mg PO DAILY heart health 08/06/22 04/24/23 release (Adult Aspirin Regimen) multivitamin 1 tab PO DAILY Supplement 08/06/22 04/24/23 amlodipine 5 mg tablet 5 mg PO DAILY bp 02/06/23 04/24/23 atorvastatin 80 mg tablet 80 mg PO HS Cholesterol 02/06/23 04/24/23 bisoprolol fumarate 5 mg tablet 2.5 mg PO DAILY bp 02/06/23 04/24/23 pyridoxine (vitamin B6) 100 mg 100 mg PO DAILY Supplement 02/06/23 04/24/23 tablet spironolactone 25 mg tablet 25 mg PO DAILY Fluid 02/06/23 04/24/23 Previous Rx's ?Medication ?Instructions ?Recorded gabapentin 600 mg tablet 600 mg PO BID Pain #60 tabs 02/18/23 mupirocin 2 % topical ointment 1 applic topical TID 7 days #15 02/25/23 grams Allergies Allergy/AdvReac Type Severity Reaction Status Date / Time No Known Allergies Allergy Verified 04/24/23 12:06 [facility] Disclaimer: The information contained in this section may have been updated after the patient was seen, as this information can be updated by other users. Medical History CAD (coronary artery disease) CVA (cerebral vascular accident) HLD (hyperlipidemia) Surgical History History of cataract surgery History of hip surgery History of intravascular stent placement Family History Other Family history of diabetes mellitus Family history of heart disease Family history of hypertension Social History Smoking Status: Former smoker tobacco type: cigarettes alcohol intake: former substance use type: denies use current occupational status: retired Travel in the last 8 weeks: None household members: none housing: house caffeine: No ROS Obtained: Yes All systems reviewed & no additional complaints except as documented Physical Exam General General appearance: alert and in no apparent distress Head Head exam: atraumatic and normocephalic Eye Eye exam: Present normal appearance, PERRL and EOMI ENT ENT exam: Present normal oropharynx and normal external ear exam Neck Neck exam: Present normal inspection and full ROM Chest Chest inspection: Present normal inspection and symmetric chest wall rise; Absent tenderness Respiratory Respiratory exam: Present normal lung sounds bilaterally; Absent respiratory distress Cardiovascular Cardiovascular exam: Present regular rate and normal rhythm Abdominal Exam Abdominal exam: Present soft; Absent distention, tenderness or guarding Extremities Exam Extremities exam: Present normal inspection; Absent edema or joint swelling Back Exam Back exam: Present normal inspection; Absent tenderness Neurological Exam Neurological exam: Present alert and oriented X3; Absent motor sensory deficit Psychiatric Psychiatric exam: Present normal affect and normal mood Skin Skin exam: Present warm, dry and rash (Generalized hives) Lymphatic Lymphatic Findings: no adenopathy Medical Decision Making Medical Records Medical records reviewed: Yes I reviewed the patient's medical records. Antwan Inquiry Pt receiving controlled substance: No Antwan was queried for this patient: No Vital Signs: 05/21/24 04:03 05/21/24 04:46 05/21/24 05:00 Temperature 98.1 F Temperature Source Oral Pulse Rate 70 63 Pulse Rate [Left] 91 H Respiratory Rate 20 20 20 Blood Pressure 199/78 H 225/84 H Blood Pressure [Right Arm] 205/104 H Blood Pressure Mean [Right Arm] 137 Blood Pressure Source Automatic Cuff Automatic Cuff Blood Pressure Source [Right Arm] Automatic Cuff Blood Pressure Position Supine Blood Pressure Position [Right Arm] Sitting 02 Sat by Pulse Oximetry 97 100 99 Oxygen Delivery Method Room Air Room Air Room Air 05/21/24 05:42 Temperature Temperature Source Pulse Rate 65 Pulse Rate [Left] Respiratory Rate 20 Blood Pressure 218/76 H Blood Pressure [Right Arm] Blood Pressure Mean [Right Arm] Blood Pressure Source Automatic Cuff Blood Pressure Source [Right Arm] Blood Pressure Position Sitting Blood Pressure Position [Right Arm] 02 Sat by Pulse Oximetry 100 Oxygen Delivery Method Room Air Lab Data Lab results reviewed: Yes I reviewed the patient's lab results. Lab Results 05/21/24 04:30: WBC 6.9, RBC 4.21, Hgb 12.3, Hct 39.8, MCV 94.5, MCH 29.3, MCHC 31.0 L, RDW 14.0, Plt Count 346, MPV 7.0 L, Neut % (Auto) 58.8, Lymph % (Auto) 35.3, [place] % (Auto) 3.4, Eos % (Auto) 1.6, Baso % (Auto) 0.8, Neut # (Auto) 4.1, Lymph # (Auto) 2.4, [place] # (Auto) 0.2, Eos # (Auto) 0.1, Baso # (Auto) 0.1, Sodium 139, Potassium 4.2, Chloride 109 H, Carbon Dioxide 27, Anion Gap 7.2, BUN 39 H, Creatinine 1.30 H, Estimated Creat Clear 38, Estimated GFR 39 L, Est GFR ( Amer) 47 L, Glucose 111 H, Calcium 9.2, Total Bilirubin 0.6, AST 28, ALT 16, Alkaline Phosphatase 68, Total Protein 7.1, Albumin 4.0, Globulin 3.1, Albumin/Globulin Ratio 1.3 05/21/24 04:30 05/21/24 04:30 Orders (Tests/Meds): ED MEDICATIONS Discontinued Medications Generic Name Dose Route Start Last Admin Trade Name Ari PRN Reason Stop Dose Admin Diphenhydramine HCl 25 mg 05/21/24 04:17 05/21/24 04:29 Diphenhydramine 25mg Capsule PO 05/21/24 04:18 25 mg ONCE ONE Administration Ketorolac Tromethamine 15 mg 05/21/24 05:11 05/21/24 05:24 Ketorolac 30mg/Ml Vial IM 05/21/24 05:12 15 mg ONCE ONE Administration Methylprednisolone Sodium Succinate 80 mg 05/21/24 05:11 05/21/24 05:38 Methylprednisolone Sod Succ 125mg Vial IV 05/21/24 05:12 Not Given ONCE ONE Methylprednisolone Sodium Succinate 80 mg 05/21/24 05:36 05/21/24 05:37 Methylprednisolone Sod Succ 125mg Vial IM 05/21/24 05:37 80 mg ONCE ONE Administration Morphine Sulfate 2 mg 05/21/24 05:11 05/21/24 05:26 Morphine 2mg/Ml Syringe IM 05/21/24 05:12 2 mg ONCE ONE Administration ORDERS Category Date Time Status CBC w/Auto Diff [Complete Blood Count Auto Diff] Stat Lab 05/21/24 04:30 Completed CMP [Comprehensive Metabolic Panel] Stat Lab 05/21/24 04:30 Completed Medical Decision Narrative: 84-year-old female Zentz for 1 day of generalized rash.. History was obtained via interactive discussion with patient. On arrival, patient is [afebrile, hemodynamically stable, satting appropriately, alert, oriented x4, GCS 15], moving all extremities spontaneously. Full physical exam performed and significant for generalized hives, no intraoral swelling, patient otherwise well-appearing. Differential includes but is not limited to allergic reaction, anaphylaxis, contact dermatitis, idiopathic urticaria, leukemia/lymphoma. Patient was given p.o. Benadryl, IM Tylenol, IM morphine, IM Solu-Medrol for symptomatic management and correction of underlying abnormalities. Workup initiated including CBC with differential, CMP. On re-evaluation, patient [remains afebrile, HD stable.] Reports significant improvement in pain. Laboratory workup independently interpreted by me and significant for nonactionable CBC CMP Given patient history, exam and workup, patient's presentation most likely represents idiopathic urticaria. No evidence of emergent pathology at this point. I had extensive and repeated discussion with patient regarding presentation. I provided with strict return precautions including for signs of serious allergic reaction, SJS, shingles etc. She was given instructions regarding symptomatic care. Procedures Risk/Benefits of Procedure(s) Were Explained: Yes Critical Care Critical Care Time Critical Care Time: No
[2024-05-21] MEDS: diphenhydrAMINE 25MG CAPSULE 25 MG PO (04:29)
[2024-05-21 04:46] VITALS: BP 199/78; PULSE 70; RESP 20; O2SAT 100
[2024-05-21 04:51] LABS: Basophils # 0.1 K/mm3 (0-0.2); Basophils % 0.8 % (0.1-2.0); Eosinophils # 0.1 K/mm3 (0.0-0.4); Eosinophils % 1.6 % (0.1-12.0); Hematocrit 39.8 % (37.0-47.0); Hemoglobin 12.3 g/dL (12.2-16.2); Lymphocytes # 2.4 K/mm3 (0.7-4.5); Lymphocytes % 35.3 % (10-50); Mean Corpuscular Hemoglobin 29.3 pg (27.0-31.2); Mean Corpuscular Volume 94.5 fl (81-99); Monocytes # 0.2 K/mm3 (0.1-1.0); Monocytes % 3.4 % (1.7-9.3); Neutrophils # 4.1 K/mm3 (1.8-7.8); Neutrophils % 58.8 % (37.0-80.0); Platelet Count 346 K/mm3 (142-424); Red Blood Count 4.21 M/mm3 (4.20-5.40); White Blood Count 6.9 K/mm3 (4.8-10.8)
[2024-05-21 04:53] LABS: Chloride 109 mmol/L (98-107); Potassium 4.2 mmoL/L (3.5-5.1); Sodium 139 mmol/L (136-145)
[2024-05-21 04:56] LABS: Alanine Aminotransferase 16 U/L (12-78); Albumin/Globulin Ratio 1.3 (1.1-1.8); Alkaline Phosphatase 68 U/L (38-126); Anion Gap 7.2 mEq/L (5-15); Aspartate Amino Transferase 28 U/L (14-36); Bilirubin,Total 0.6 mg/dl (0.2-1.3); Blood Urea Nitrogen 39 mg/dl (7-17); Calcium 9.2 mg/dl (8.4-10.2); Carbon Dioxide 27 mmol/L (22.0-30.0); Creatinine Clearance Estimated 38 mL/min (50-200); Estimated Glomerular Filt Rate 39 ml/min (>60); GFR (African American) 47 ML/MIN (>60); Globulin 3.1 g/dL (1.3-3.2); Glucose 111 mg/dl (74-100); Total Protein,Serum 7.1 g/dl (6.3-8.2)
[2024-05-21 05:00] VITALS: BP 225/84; PULSE 63; RESP 20; O2SAT 99
[2024-05-21] MEDS: KETOROLAC 30MG/ML VIAL 15 MG IM (05:24)
[2024-05-21] MEDS: MORPHINE 2MG/ML SYRINGE 2 MG IM (05:26)
[2024-05-21] MEDS: METHYLPREDNISOLONE SOD SUCC 125MG VIAL 80 MG IM (05:37)
--- NOTE | 2024-05-21 05:41 | PC.NURSE ---
Pt. was very uncomfortable , Dr. Chago petersen re-evaluated patient and ordered pain meds and steroids for patient.
[2024-05-21 05:42] VITALS: BP 218/76; PULSE 65; RESP 20; O2SAT 100
[2024-05-21 06:32] VITALS: BP 206/82; PULSE 64; RESP 18; TEMP 36.7; O2SAT 98
--- NOTE | 2024-05-21 06:37 | PC.NURSE ---
0545cool wash clothes and ice packs applies to arms, chest, abd. for comfort.
== END 2024-05-21 06:38 | disposition home or self-care (01) ==
PROVIDERS: Emergency Provider Emergency Medicine; PCP Nurse Practitioner Family
DX: T78.40XA Allergy, unspecified, initial encounter (principal); R21 Rash and other nonspecific skin eruption; I25.10 Atherosclerotic heart disease of native coronary artery without angina pectoris; E78.5 Hyperlipidemia, unspecified; Z86.73 Personal history of transient ischemic attack (TIA), and cerebral infarction without residual deficits; Z87.891 Personal history of nicotine dependence
CPT/HCPCS: 80053; 85025; 96372; 99283; J1885; J2270; J2919

== ENCOUNTER 2024-09-04 13:08 | Emergency (ER) | payer MEDICARE, BC, SELFPAY ==
[2024-09-04] VITALS (16 sets, daily range): BP systolic 87–233; BP diastolic 56–116; PULSE 73–90; RESP 18–20; TEMP 36.4–36.8; O2SAT 93–98; BMI 23.5
--- NOTE | 2024-09-04 13:08 | ED_ITS ---
<Statement entered by Misty Melendrez MD - 09/10/24 23:25> I was consulted by the JOAN, and we discussed the complexity of the problems being addressed. I approved the treatment and management plan for this patient's care in the emergency department, thus performing a substantive portion of the medical decision making. Misty Melendrez MD, PRAFUL, FACEP Discharge Plan Disposition Patient Disposition: Xfer Short-Term Hosp Condition: Fair Prescriptions Prescriptions: No Action aspirin [Adult Aspirin Regimen] 81 mg tablet,delayed release (DR/EC) 81 mg PO DAILY multivitamin Tablet 1 tab PO DAILY gabapentin 600 mg tablet 600 mg PO BID Qty: 60 0RF atorvastatin 80 mg tablet 80 mg PO HS amlodipine 5 mg tablet 5 mg PO DAILY spironolactone 25 mg tablet 25 mg PO DAILY bisoprolol fumarate 5 mg tablet 2.5 mg PO DAILY pyridoxine (vitamin B6) 100 mg tablet 100 mg PO DAILY mupirocin 2 % ointment 1 applic topical TID 7 Days Qty: 15 0RF Activity Restrictions/Add. Instructions Additional Instructions/Restrictions: To [place] Main care of Dr. Russell [facility] medicine Clinical Impressions Clinical Impression: Prosthetic hip implant failure Qualifiers: Encounter type: initial encounter Qualified Code(s): T84.018A - Broken internal joint prosthesis, other site, initial encounter Stand Alone Forms Stand Alone Forms: Transfer Record - ED Print Language Print Language: Serbian Discharge ED Provider: Misty Melendrez General Adult HPI General Chief complaint: Extremity Injury, Lower Stated complaint: L hip pain, hips popped out of place Time Seen by Provider: 09/04/24 13:15 History of Present Illness HPI narrative: Patient presents for evaluation of left hip pain. Patient is status post bilateral JIMBO in 2009. Patient was at [facility] today trying on shoes. She was sitting down bent over to tie her shoes and felt very painful pop in her left hip. She was unable to stand due to the pain. EMS arrived and patient was still unable to bear weight thus brought to the emergency department. On arrival patient has internally rotated and foreshortened left lower extremity with significant amount of pain but denies any numbness or tingling. She did not fall did not strike her head or loss of consciousness. Related Data Home Medications ?Medication ?Instructions ?Recorded ?Confirmed aspirin 81 mg tablet,delayed 81 mg PO DAILY heart [facility] 08/06/22 04/24/23 release (Adult Aspirin Regimen) multivitamin 1 tab PO DAILY Supplement 08/06/22 04/24/23 amlodipine 5 mg tablet 5 mg PO DAILY bp 02/06/23 04/24/23 atorvastatin 80 mg tablet 80 mg PO HS Cholesterol 02/06/23 04/24/23 bisoprolol fumarate 5 mg tablet 2.5 mg PO DAILY bp 02/06/23 04/24/23 pyridoxine (vitamin B6) 100 mg 100 mg PO DAILY Supplement 02/06/23 04/24/23 tablet spironolactone 25 mg tablet 25 mg PO DAILY Fluid 02/06/23 04/24/23 Previous Rx's ?Medication ?Instructions ?Recorded gabapentin 600 mg tablet 600 mg PO BID Pain #60 tabs 02/18/23 mupirocin 2 % topical ointment 1 applic topical TID 7 days #15 02/25/23 grams Allergies Allergy/AdvReac Type Severity Reaction Status Date / Time No Known Allergies Allergy Verified 04/24/23 12:[address] [facility] Disclaimer: The information contained in this section may have been updated after the patient was seen, as this information can be updated by other users. Medical History CAD (coronary artery disease) CVA (cerebral vascular accident) HLD (hyperlipidemia) Surgical History History of cataract surgery History of hip surgery History of intravascular stent placement Family History Other Family history of diabetes mellitus Family history of heart disease Family history of hypertension Social History Smoking Status: Never smoker alcohol intake: former substance use type: denies use current occupational status: retired Travel in the last 8 weeks: None household members: none housing: house caffeine: No Other Medical History Have you received the Flu Vaccine for this season: No Have you received the Pneumonia Vaccine: Yes ROS Obtained: Yes Systems reviewed as appropriate & no additional complaints except as documented Physical Exam General General appearance: alert and in no apparent distress Respiratory Respiratory exam: Present normal lung sounds bilaterally Cardiovascular Cardiovascular exam: Present regular rate Neurological Exam Neurological exam: Present alert and oriented X3 Medical Decision Making Medical Records Medical records reviewed: Yes I reviewed the patient's medical records. Screening: Per USPSTF and CDC recommendations, given the prevalence of disease in our region, it is our hospital?s policy to screen for HIV and viral Hepatitis for all patients aged 18 and over and those with ongoing risk factors. Antwan Inquiry Pt receiving controlled substance: No Vital Signs: 09/04/24 13:08 09/04/24 13:31 09/04/24 14:08 Temperature 97.6 F Temperature Source Oral Pulse Rate 80 90 Pulse Rate [Right] 78 Respiratory Rate 18 Blood Pressure 205/103 H 230/100 H Blood Pressure [Right Arm] 177/82 H Blood Pressure Mean 126 Blood Pressure Mean [Right Arm] 113 02 Sat by Pulse Oximetry 98 98 98 Oxygen Delivery Method Room Air 09/04/24 14:10 09/04/24 14:25 Temperature Temperature Source Pulse Rate 85 84 Pulse Rate [Right] Respiratory Rate Blood Pressure 233/116 H 205/80 H Blood Pressure [Right Arm] Blood Pressure Mean Blood Pressure Mean [Right Arm] 02 Sat by Pulse Oximetry 98 98 Oxygen Delivery Method Lab Data Lab results reviewed: Yes I reviewed the patient's lab results. Lab Results 09/04/24 14:10: WBC 7.5, RBC 4.61, Hgb 13.7, Hct 41.3, MCV 89.6, MCH 29.7, MCHC 33.2, RDW 13.5, Plt Count 317, MPV 7.6, Neut % (Auto) 71.4, Lymph % (Auto) 22.9, [place] % (Auto) 3.7, Eos % (Auto) 1.3, Baso % (Auto) 0.7, Neut # (Auto) 5.3, Lymph # (Auto) 1.7, [place] # (Auto) 0.3, Eos # (Auto) 0.1, Baso # (Auto) 0.1, PT 10.5, INR 0.93, Sodium 137, Potassium 4.7, Chloride 103, Carbon Dioxide 26, Anion Gap 12.7, BUN 29 H, Creatinine 1.20 H, Estimated Creat Clear 38, Estimated GFR 43 L, Est GFR ( Amer) 52 L, Glucose 121 H, Calcium 10.3 H 09/04/24 14:10 09/04/24 14:10 Orders (Tests/Meds): ED MEDICATIONS Discontinued Medications Generic Name Dose Route Start Last Admin Trade Name Ari PRN Reason Stop Dose Admin Morphine Sulfate 2 mg 09/04/24 13:57 09/04/24 14:12 Morphine 2mg/Ml Syringe IV 09/04/24 13:58 2 mg ONCE ONE Administration Ondansetron HCl 4 mg 09/04/24 14:00 09/04/24 14:12 Ondansetron 4mg/2ml Vial IV 09/04/24 14:01 4 mg ONCE ONE Administration ORDERS Category Date Time Status Hip XR left minimum 2 views [XR hip LT 2-3V w/pelvis] Exams 09/04/24 13:16 Completed Stat POCUS Point of Care (ER Only) Stat Exams 09/04/24 13:58 Ordered BMP [Basic Metabolic Panel] Stat Lab 09/04/24 14:10 Completed CBC w/Auto Diff [Complete Blood Count Auto Diff] Stat Lab 09/04/24 14:10 Completed HIV Combo Stat Lab 09/04/24 14:10 Received Hep C Ab with Reflex to RNA Stat Lab 09/04/24 14:10 Received INR [Prothrombin Time INR] Stat Lab 09/04/24 14:10 Completed Medical Decision Narrative: In summary patient is a 84-year-old female who presents to the emergency department for evaluation of left hip pain. Patient is hemodynamically stable upon arrival, afebrile. Physical exam shows an internally rotated and foreshortened left lower extremity. I am able to pout a strong DP but due to the patient's positioning and discomfort I am unable to palpate a posterior tibialis. Patient is extraordinarily tender about the left hip but no obvious signs of trauma noted. Differential diagnosis includes prosthetic dislocation versus prosthetic failure versus bony fracture etc. Initial workup will be conducted with left hip with pelvis plain film x-ray. Initial interventions include Toradol Tylenol morphine. 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 Upon repeat evaluation a POCUS was performed which verified popliteal flow. Given this I had interactive discussion with [facility] both the orthopedic surgeon on-call and the hospitalist. Patient has been accepted by both and we await bed assignment Critical Care Critical Care Time Critical Care Time: No
--- NOTE | 2024-09-04 13:16 | XR_ITS ---
PROCEDURE INFORMATION: Exam: XR Left Hip Exam date and time: 09/04/2024 1:19 PM Age: 84 years old Clinical indication: Injury or trauma; Other: Patient was sitting down putting on shoe and felt a pop; Other: Pain; Additional info: Left hip pain, prosthetic hip TECHNIQUE: Imaging protocol: Radiologic exam of the left hip. Views: 2 or 3 views hip with pelvis when performed. Total images: 3 COMPARISON: CT ABDOMEN PELVIS WO CON 12/14/2022 11:24 PM FINDINGS: Bones/joints: Left total hip prosthesis is noted. There is dislocation of the left hip prosthetic head with displacement of the prosthetic head from the remainder of the prosthesis. Right total hip replacement is intact. Bones are osteopenic. Scoliotic changes of the left ilium. Soft tissues: Unremarkable. Gastrointestinal tract: Large amount of stool is present throughout the colon. IMPRESSION: 1. There is dislocation of the left hip prosthetic head with displacement of the prosthetic head from the remainder of the prosthesis. 2. Bones are osteopenic.
--- NOTE | 2024-09-04 14:00 | PC.NURSE ---
Called [facility] per Coleman Fuller for a poss transfer, [facility] stated that they would give us a call back.
[2024-09-04] MEDS: ONDANSETRON 4MG/2ML VIAL 4 MG IV ×2 (14:12→19:09)
[2024-09-04] MEDS: MORPHINE 2MG/ML SYRINGE 2 MG IV ×2 (14:12→19:09)
[2024-09-04 14:49] LABS: Anion Gap 12.7 mEq/L (5-15); Blood Urea Nitrogen 29 mg/dl (7-17); Calcium 10.3 mg/dl (8.4-10.2); Carbon Dioxide 26 mmol/L (22.0-30.0); Chloride 103 mmol/L (98-107); Creatinine Clearance Estimated 38 mL/min (50-200); Estimated Glomerular Filt Rate 43 ml/min (>60); GFR (African American) 52 ML/MIN (>60); Glucose 121 mg/dl (74-100); Potassium 4.7 mmoL/L (3.5-5.1); Sodium 137 mmol/L (136-145)
[2024-09-04 15:00] LABS: Basophils # 0.1 K/mm3 (0-0.2); Basophils % 0.7 % (0.1-2.0); Eosinophils # 0.1 K/mm3 (0.0-0.4); Eosinophils % 1.3 % (0.1-12.0); Hematocrit 41.3 % (37.0-47.0); Hemoglobin 13.7 g/dL (12.2-16.2); Lymphocytes # 1.7 K/mm3 (0.7-4.5); Lymphocytes % 22.9 % (10-50); Mean Corpuscular HGB Conc 33.2 g/dL (31.8-35.4); Mean Corpuscular Hemoglobin 29.7 pg (27.0-31.2); Mean Corpuscular Volume 89.6 fl (81-99); Mean Platelet Volume 7.6 fl (7.4-10.4); Monocytes # 0.3 K/mm3 (0.1-1.0); Monocytes % 3.7 % (1.7-9.3); Neutrophils # 5.3 K/mm3 (1.8-7.8); Neutrophils % 71.4 % (37.0-80.0); Platelet Count 317 K/mm3 (142-424); Red Blood Count 4.61 M/mm3 (4.20-5.40); Red Cell Distribution Width 13.5 % (11.5-17.5); White Blood Count 7.5 K/mm3 (4.8-10.8)
[2024-09-04 15:27] LABS: INR 0.93 (0.9-1.1); Prothrombin Time 10.5 seconds (10.1-12.5)
--- NOTE | 2024-09-04 15:28 | PC.NURSE ---
attempted to call report to [facility] but the nurse is unavailable @ this time. She will call back
[2024-09-04 15:30] LABS: HIV Combo NEGATIVE (Negative)
[2024-09-06 06:10] LABS: HCV Ab Non Reactive (Non Reactive)
== END 2024-09-04 18:35 | disposition short-term general hospital (02) ==
PROVIDERS: Physician Assistant; Emergency Provider Student in an Organized Health Care Education/Training Program; PCP Nurse Practitioner Family
DX: T84.011A Broken internal left hip prosthesis, initial encounter (principal); M25.552 Pain in left hip; X50.1XXA Overexertion from prolonged static or awkward postures, initial encounter; Y93.89 Activity, other specified; Y92.89 Other specified places as the place of occurrence of the external cause
CPT/HCPCS: 73502; 80048; 85025; 85610; 86803; 87389; 96374; 96375; 99283; J2270; J2405